=== PATIENT | female | born 1950 | race Caucasian/White ===

== ENCOUNTER 2019-05-31 16:43 | Emergency (ER) | payer MEDICARE, MEDICAID ==
[2019-05-31] MEDS ORDERED: Aspirin 81 MG Tab.Chew ONE (16:50)
[2019-05-31] MEDS ORDERED: Aspirin 81 MG Tab.Chew PO ONE (16:55)
--- NOTE | 2019-05-31 17:06 | EDM.PDOC ---
ED HPI GENERAL MEDICAL PROBLEM - General Stated Complaint: CP AND SOB Time Seen by Provider: 05/31/19 16:43 Source of Information: Reports: Patient History Limitations: Reports: No Limitations - History of Present Illness INITIAL COMMENTS - FREE TEXT/NARRATIVE: Patient presents via ambulance from [place] where she has been living for about two months. She states she has mild abdominal discomfort that started at about 3: 45pm with slight heaviness in the chest which is now gone. No nausea. She says she has had this several times over the last 2-3 weeks as well as dyspnea with walking. She says it has always responded well to Simethicone and wishes she had had some today so she wouldn't have had to come to ER. She denies any history of VA or stents. She has Parkinson's and has had a brain stimulator placed which helps. Generalized Pain Score (Numeric/FACES): 2 - Related Data Allergies Allergy/AdvReac Type Severity Reaction Status Date / Time ciprofloxacin [From Cipro] Allergy Anaphylactic Verified 05/31/19 16:57 Shock levofloxacin Allergy Anaphylactic Verified 05/31/19 16:57 Shock tetracycline Allergy Anaphylactic Verified 05/31/19 16:57 Shock Home Meds: Home Meds ALPRAZolam [Alprazolam] 0.25 mg PO BEDTIME 05/31/19 [History] ARIPiprazole [Abilify] 7.5 mg PO BID 05/31/19 [History] Acetaminophen 325 mg PO Q6H PRN 05/31/19 [History] Acetaminophen [Tylenol] 650 mg PO BID 05/31/19 [History] Albuterol [Ventolin HFA] 2 puff INH Q4H PRN 05/31/19 [History] Ascorbic Acid [Vitamin C] 2,000 mg PO BID 05/31/19 [History] Aspirin [Adult Low Dose Aspirin EC] 81 mg PO DAILY 05/31/19 [History] Bisacodyl [Biscolax] 10 mg RC DAILY PRN 05/31/19 [History] Calcium Carbonate 1,000 mg PO Q6H PRN 05/31/19 [History] Calcium Carbonate [Calcium] 1,000 mg PO DAILY@1800 05/31/19 [History] Carbidopa 25 mg PO QID 05/31/19 [History] Carbidopa/Levodopa [Carbidopa-Levodopa 25-250] 1 tab PO QID 05/31/19 [History] Cholecalciferol (Vitamin D3) [Vitamin D] 5,000 unit PO DAILY 05/31/19 [History] Cyanocobalamin (Vitamin B-12) [Vitamin B-12] 1,000 mcg SL Q30D 05/31/19 [History ] EPINEPHrine [Epipen] 0.3 mg IM ASDIRECTED PRN 05/31/19 [History] Entacapone 100 mg PO QID 05/31/19 [History] Fluticasone Propionate [Flonase] 1 spray NASBOTH BID 05/31/19 [History] Levothyroxine [Synthroid] 50 mcg PO ACBREAKFAST 05/31/19 [History] Magnesium Hydroxide [Milk of Magnesia] 30 ml PO DAILY PRN 05/31/19 [History] Magnesium Oxide [Magnesium] 400 mg PO BID 05/31/19 [History] Menthol [[place]] 1 lozenge PO Q3H PRN 05/31/19 [History] Nystatin 1 gm TP TID 05/31/19 [History] Pe/Shark Liver/Gly/Pet,Wh [Hemorrhoidal Cream] 1 gm RC QID PRN 05/31/19 [History ] Polyethylene Glycol 3350 [MiraLAX] 17 gm PO DAILY 05/31/19 [History] Sennosides/Docusate Sodium [Senna-S] 1 each PO BID 05/31/19 [History] Sertraline HCl 100 mg PO DAILY 05/31/19 [History] Topiramate 50 mg PO BEDTIME 05/31/19 [History] Ubidecarenone [Co Q-10] 100 mg PO DAILY@1800 05/31/19 [History] amLODIPine Besylate [Norvasc] 10 mg PO DAILY 05/31/19 [History] busPIRone [Buspar] 10 mg PO BID 05/31/19 [History] diphenhydrAMINE [Benadryl] 25 mg PO Q6H PRN 05/31/19 [History] ED ROS GENERAL - Review of Systems Review Of Systems: See Below Constitutional: Denies: Fever, Malaise, Weakness, Diaphoresis HEENT: Denies: Vision Change Respiratory: Reports: Shortness of Breath (with walking only). Denies: Cough Cardiovascular: Reports: Dyspnea on Exertion. Denies: Chest Pain, Lightheadedness, Syncope GI/Abdominal: Reports: Abdominal Pain (mild, low middle now--it shifted from chest and upper abdomen over the last hour). Denies: Constipation, Diarrhea, Nausea, Vomiting : Reports: Frequency (she has had a recent urology workup for this). Denies: Dysuria Musculoskeletal: Reports: Shoulder Pain (right side where she had B12 shot yesterday). Denies: Neck Pain, Arm Pain, Back Pain Skin: Denies: Cyanosis, Jaundice, Mottled, Pallor, Diaphoresis Neurological: Denies: Confusion, Dizziness, Headache, Seizure, Syncope, Change in Speech Psychiatric: Denies: Agitation, Anxiety, Confusion ED EXAM, GI/ABD - Physical Exam Exam: See Below Exam Limited By: No Limitations General Appearance: Alert, WD/WN, No Apparent Distress Eyes: Bilateral: Normal Appearance, EOMI Ears: Normal External Exam, Hearing Grossly Normal Nose: Normal Inspection, No Blood Throat/Mouth: Normal Inspection, Normal Lips, Normal Voice, No Airway Compromise Head: Atraumatic, Normocephalic Neck: Normal Inspection, Full Range of Motion Respiratory/Chest: No Respiratory Distress, Lungs Clear, Normal Breath Sounds, No Accessory Muscle Use Cardiovascular: Regular Rate, Rhythm, No Murmur GI/Abdominal Exam: Normal Bowel Sounds, Soft, Non-Tender, No Organomegaly, No Distention. No: Distended, Guarding, Rigid Back Exam: Normal Inspection, Full Range of Motion. No: CVA Tenderness (L), CVA Tenderness (R) Extremities: Normal Inspection, Normal Range of Motion, No Pedal Edema (minimal) Neurological: Alert, Oriented, Normal Cognition, No Motor/Sensory Deficits Psychiatric: Normal Affect, Normal Mood Skin Exam: Warm, Dry, Intact, Normal Color, No Rash Course - Vital Signs Last Recorded V/S: Last Vital Signs Temp 98.4 F 05/31/19 16:50 Pulse 80 05/31/19 18:16 Resp 18 05/31/19 18:16 BP 136/48 L 05/31/19 18:16 Pulse Ox 94 L 05/31/19 18:16 - Orders/Labs/Meds Orders: Active Orders 24 hr Category Date Time Status EKG Documentation Completion [RC] ASDIRECTED Care 05/31/19 16:54 Active Peripheral IV Care [RC] . DIRECTED Care 05/31/19 17:09 Active CULTURE URINE [RM] Stat Lab 05/31/19 17:47 Ordered Sodium Chloride 0.9% [Saline Flush] Med 05/31/19 17:09 Active 10 ml FLUSH Q8HR PRN Peripheral IV Insertion Adult [OM.PC] Routine Oth 05/31/19 17:09 Ordered EKG 12 Lead [EK] Routine Ther 05/31/19 16:53 Ordered Medication Orders Sodium Chloride (Saline Flush) 10 ml FLUSH Q8HR PRN PRN Reason: keep vein open Labs: Laboratory Tests 05/31/19 05/31/19 05/31/19 Range/Units 16:50 16:50 16:50 WBC 11.50 H (5.00-10.00) 10^3/uL RBC 4.43 (3.80-5.50) 10^6/uL Hgb 12.4 (12.0-16.0) g/dL Hct 38.3 (37.0-47.0) % MCV 86.5 (82.0-92.0) fL MCH 28.0 (27.0-31.0) pg MCHC 32.4 (32.0-36.0) g/dL RDW 16.6 H (11.5-14.5) % Plt Count 286 (150-400) 10^3/uL MPV 9.4 (7.4-10.4) fL Immature Gran % (Auto) 0.3 (0.0-5.0) % Neut % (Auto) 72.0 H (50.0-70.0) % Lymph % (Auto) 18.6 L (20.0-40.0) % [place] % (Auto) 7.0 (2.0-8.0) % Eos % (Auto) 1.8 (1.0-3.0) % Baso % (Auto) 0.3 (0.0-1.0) % Immature Gran # (Auto) 0.03 (0.00-0.50) 10^3/uL Neut # (Auto) 8.28 H (2.50-7.00) 10^3/uL Lymph # (Auto) 2.14 (1.00-4.00) 10^3/uL [place] # (Auto) 0.80 (0.10-0.80) 10^3/uL Eos # (Auto) 0.21 (0.10-0.30) 10^3/uL Baso # (Auto) 0.04 (0.00-0.10) 10^3/uL Sodium 144 (136-145) mmol/L Potassium 3.6 (3.3-5.3) mmol/L Chloride 104 (98-115) mmol/L Carbon Dioxide 26.0 (21.0-32.0) mmol/L Anion Gap 17.6 H (5-15) mmol/L BUN 10 (6-25) mg/dL Creatinine 0.44 L (0.51-1.17) mg/dL Est Cr Clr Drug Dosing 122.34 mL/min Estimated GFR (MDRD) > 60 mL/min Glucose 108 H (75 - 99) mg/dL Calcium 8.6 L (8.7-10.3) mg/dL Total Bilirubin 0.2 (0.2-1.0) mg/dL AST 20 (15-37) U/L ALT 14 (12-78) U/L Alkaline Phosphatase 136 H (46-116) IU/L Troponin I < 0.04 (0.00-0.070) ng/mL B-Natriuretic Peptide 48 (0-100) pg/mL Total Protein 7.3 (6.4-8.2) g/dL Albumin 3.16 (3.00-4.80) g/dL Specimen Type Urine Color (YELLOW) Urine Appearance (CLEAR) Urine pH (5.0-9.0) Ur Specific [place] (1.005-1.030) Urine Protein (NEGATIVE) mg/dL Urine Glucose (UA) (NEGATIVE) mg/dL Urine Ketones (NEGATIVE) mg/dL Urine Occult Blood (NEGATIVE) Urine Nitrite (NEGATIVE) Urine Bilirubin (NEGATIVE) Urine Urobilinogen (0.2-1.0) E.U./dL Ur Leukocyte Esterase (NEGATIVE) Urine RBC (0-5) /HPF Urine WBC (0-5) /HPF Ur Epithelial Cells /LPF Urine Bacteria (NONE TO FEW) /HPF 05/31/19 Range/Units 17:23 WBC (5.00-10.00) 10^3/uL RBC (3.80-5.50) 10^6/uL Hgb (12.0-16.0) g/dL Hct (37.0-47.0) % MCV (82.0-92.0) fL MCH (27.0-31.0) pg MCHC (32.0-36.0) g/dL RDW (11.5-14.5) % Plt Count (150-400) 10^3/uL MPV (7.4-10.4) fL Immature Gran % (Auto) (0.0-5.0) % Neut % (Auto) (50.0-70.0) % Lymph % (Auto) (20.0-40.0) % [place] % (Auto) (2.0-8.0) % Eos % (Auto) (1.0-3.0) % Baso % (Auto) (0.0-1.0) % Immature Gran # (Auto) (0.00-0.50) 10^3/uL Neut # (Auto) (2.50-7.00) 10^3/uL Lymph # (Auto) (1.00-4.00) 10^3/uL [place] # (Auto) (0.10-0.80) 10^3/uL Eos # (Auto) (0.10-0.30) 10^3/uL Baso # (Auto) (0.00-0.10) 10^3/uL Sodium (136-145) mmol/L Potassium (3.3-5.3) mmol/L Chloride (98-115) mmol/L Carbon Dioxide (21.0-32.0) mmol/L Anion Gap (5-15) mmol/L BUN (6-25) mg/dL Creatinine (0.51-1.17) mg/dL Est Cr Clr Drug Dosing mL/min Estimated GFR (MDRD) mL/min Glucose (75 - 99) mg/dL Calcium (8.7-10.3) mg/dL Total Bilirubin (0.2-1.0) mg/dL AST (15-37) U/L ALT (12-78) U/L Alkaline Phosphatase (46-116) IU/L Troponin I (0.00-0.070) ng/mL B-Natriuretic Peptide (0-100) pg/mL Total Protein (6.4-8.2) g/dL Albumin (3.00-4.80) g/dL Specimen Type Urinvoid Urine Color Yellow (YELLOW) Urine Appearance Clear (CLEAR) Urine pH 7.0 (5.0-9.0) Ur Specific [place] <= 1.005 (1.005-1.030) Urine Protein Negative (NEGATIVE) mg/dL Urine Glucose (UA) Negative (NEGATIVE) mg/dL Urine Ketones Negative (NEGATIVE) mg/dL Urine Occult Blood Negative (NEGATIVE) Urine Nitrite Negative (NEGATIVE) Urine Bilirubin Negative (NEGATIVE) Urine Urobilinogen 0.2 (0.2-1.0) E.U./dL Ur Leukocyte Esterase Trace H (NEGATIVE) Urine RBC 0-5 (0-5) /HPF Urine WBC 20-30 H (0-5) /HPF Ur Epithelial Cells Few /LPF Urine Bacteria Moderate H (NONE TO FEW) /HPF Meds: Medications Generic Name Dose Route Start Last Admin Trade Name Freq PRN Reason Stop Dose Admin Sodium Chloride 10 ml 05/31/19 17:09 Saline Flush FLUSH Q8HR PRN keep vein open Discontinued Medications Generic Name Dose Route Start Last Admin Trade Name Freq PRN Reason Stop Dose Admin Al Hydroxide/Mg Hydroxide 45 ml 05/31/19 17:10 05/31/19 17:13 Gi Cocktail PO 05/31/19 17:11 45 ml ONETIME ONE Administration Aspirin Confirm 05/31/19 16:50 05/31/19 17:04 Aspirin Administered 05/31/19 16:51 Not Given Dose 324 mg .ROUTE .STK-MED ONE Aspirin 324 mg 05/31/19 16:55 05/31/19 16:50 Aspirin PO 05/31/19 16:56 324 mg ONETIME ONE Administration Simethicone 160 mg 05/31/19 17:37 05/31/19 17:47 Simethicone PO 05/31/19 17:38 160 mg ONETIME ONE Administration - Re-Assessments/Exams Free Text/Narrative Re-Assessment/Exam: 05/31/19 17:11 Patient says the pain in the abdomen is slowly fading. Right now she feels some pressure in the chest again that she describes as indigestion. Will try a GI cocktail to help determine etiology. 05/31/19 17:39 The GI cocktail resolved the chest pressure and she feels now like she has a gas bubble pressure in the abdomen. She would like some Simethicone. 05/31/19 18:11 She now feels pretty close to back to normal and says the Simethicone definitely helped. Labs okay with Troponin <0.04. CXR shows evidence of likely CHF exacerbation so will add on a BNP. Patient has never been told she has CHF but she wonders if she does with fluid retention sometimes. 05/31/19 18:42 BNP is normal. Patient is feeling well and has family here now to take her back. We discussed findings and treatment plan. Patient discharged back to [place] in stable condition. Departure - Departure Time of Disposition: 18:38 Disposition: DC/Tfer to SNF 03 Condition: Good Clinical Impression: Abdominal gas pain, Gassy chest pain - Discharge Information Referrals: Agnieszka Flannery MD [Primary Care Provider] - Additional Instructions: 1. Use the Simethicone as needed. 2. Follow up with your PCP as needed. - My Orders Last 24 Hours: My Active Orders 05/31/19 16:53 EKG 12 Lead [EK] Routine 05/31/19 16:54 EKG Documentation Completion [RC] ASDIRECTED 05/31/19 17:09 Peripheral IV Care [RC] . DIRECTED Sodium Chloride 0.9% [Saline Flush] 10 ml FLUSH Q8HR PRN Peripheral IV Insertion Adult [OM.PC] Routine 05/31/19 17:47 CULTURE URINE [RM] Stat - Assessment/Plan Last 24 Hours: My Active Orders 05/31/19 16:53 EKG 12 Lead [EK] Routine 05/31/19 16:54 EKG Documentation Completion [RC] ASDIRECTED 05/31/19 17:09 Peripheral IV Care [RC] . DIRECTED Sodium Chloride 0.9% [Saline Flush] 10 ml FLUSH Q8HR PRN Peripheral IV Insertion Adult [OM.PC] Routine 05/31/19 17:47 CULTURE URINE [RM] Stat
[2019-05-31] MEDS ORDERED: Sodium Chloride 0.9% 10 ML Syringe FLUSH PRN (17:09)
[2019-05-31] MEDS ORDERED: GI Cocktail 45 ML BOTTLE PO ONE (17:10)
--- NOTE | 2019-05-31 17:23 | CR ---
[id number] RAD/RAD Chest PA or AP 1V EXAM: RAD Chest PA or AP 1V INDICATION: CHEST PAIN, SHORTNESS OF BREATH. COMPARISON: October 26, 2018. DISCUSSION: There is a left chest wall vagal stimulator in place. Cardiomediastinal silhouette is enlarged. Pulmonary vascular congestion with patchy airspace opacification bilaterally. No pneumothorax or pleural effusion. IMPRESSION: Findings suggestive of congestive heart failure exacerbation. Brock Garza DO 05/31/19 1562 Thank you for allowing us to participate in the care of your patient.
[2019-05-31] MEDS ORDERED: Simethicone 80 MG Tab.Chew PO ONE (17:37)
[2019-05-31 17:45] LABS: ANION GAP 17.6 mmol/L (5-15); CHLORIDE,CL 104 mmol/L (98-115); SODIUM,NA 144 mmol/L (136-145)
== END 2019-05-31 18:55 ==
LOC: KA.ED 16:43
DX: R14.1 Gas pain (principal); R07.89 Other chest pain; G20 Parkinson's disease; Z88.1 Allergy status to other antibiotic agents; Z88.8 Allergy status to other drugs, medicaments and biological substances; Z79.82 Long term (current) use of aspirin; Z79.899 Other long term (current) drug therapy; R06.09 Other forms of dyspnea
CPT/HCPCS: 36415; 71045; 80053; 81001; 83880; 84484; 85025; 87077; 87086; 87088; 87186; 93005; 99285; A9270

== ENCOUNTER 2020-08-12 10:07 | Emergency (ER) | payer MEDICARE, MEDICAID ==
--- NOTE | 2020-08-12 10:52 | EDM.PDOC ---
ED HPI GENERAL MEDICAL PROBLEM - General Chief Complaint: General Stated Complaint: L KNEE PAIN Time Seen by Provider: 08/12/20 10:46 - History of Present Illness INITIAL COMMENTS - FREE TEXT/NARRATIVE: Presents emergency room by transfer [facility] via [facility], for a [facility] last [facility]. Patient is unable to walk however she was in her recliner in her room and she decided she would get up and try to get to her bed. She fell forward, after attempting to stand without assistance and her left knee hit the edge of the night stand. She laid there for approximately less than 5 minutes. No other injuries noted. No loss of consciousness, no head or neck or back injury or pain. She is not on any anticoagulants. Currently her pain, sharp, constant, no radiation, is 9 out of 10 with the left knee. Patient has history of bilateral total knee replacements one done in 2012 and the other knee in 2013, both were done at [facility]. Patient Left Knee Pain Score (Numeric/FACES): 9 - Related Data Allergies Allergy/AdvReac Type Severity Reaction Status Date / Time adhesive Allergy Cannot Verified 08/12/20 10:28 Remember bee venom protein (honey bee) Allergy Anaphylactic Verified 08/12/20 10:28 Shock cefdinir Allergy Rash Verified 08/12/20 10:28 ciprofloxacin [From Cipro] Allergy Anaphylactic Verified 05/31/19 16:57 Shock codeine Allergy Cannot Verified 08/12/20 10:28 Remember equine protein Allergy Anaphylactic Verified 08/12/20 10:28 Shock gabapentin Allergy Edema Verified 08/12/20 10:28 ibuprofen Allergy Anaphylactic Verified 08/12/20 10:28 Shock iodine Allergy Anaphylactic Verified 08/12/20 10:28 Shock latex Allergy Rash Verified 08/12/20 10:28 levofloxacin Allergy Anaphylactic Verified 05/31/19 16:57 Shock metronidazole Allergy Hives Verified 08/12/20 10:28 morphine Allergy Anaphylactic Verified 08/12/20 10:28 Shock oxycodone Allergy Cannot Verified 08/12/20 10:28 Remember povidone-iodine Allergy Cannot Verified 08/12/20 10:28 [From Betadine] Remember procaine Allergy Nausea and Verified 08/12/20 10:28 Vomiting shellfish derived Allergy Anaphylactic Verified 08/12/20 10:28 Shock soap [From Betadine] Allergy Cannot Verified 08/12/20 10:28 Remember Sulfa (Sulfonamide Allergy Anaphylactic Verified 08/12/20 10:28 Antibiotics) Shock tetracycline Allergy Anaphylactic Verified 05/31/19 16:57 Shock tramadol Allergy Cannot Verified 08/12/20 10:28 Remember contrast Allergy Anaphylactic Uncoded 08/12/20 10:28 Shock diptheria toxoid Allergy Cannot Uncoded 08/12/20 10:28 Remember troleanolomycin Allergy Anaphylactic Uncoded 08/12/20 10:28 Shock Home Meds: Home Meds ALPRAZolam [Alprazolam] 0.25 mg PO BEDTIME 05/31/19 [History] Acetaminophen 325 mg PO Q6H PRN 05/31/19 [History] Albuterol [Ventolin HFA] 2 puff INH Q4H PRN 05/31/19 [History] Ascorbic Acid [Vitamin C] 2,000 mg PO BID 05/31/19 [History] Calcium Carbonate [Calcium] 1,000 mg PO DAILY@1800 05/31/19 [History] Carbidopa 25 mg PO QID 05/31/19 [History] Cyanocobalamin (Vitamin B-12) [Vitamin B-12] 1,000 mcg SL Q30D 05/31/19 [History] Entacapone 100 mg PO QID 05/31/19 [History] Fluticasone Propionate [Flonase] 1 spray NASBOTH BID 05/31/19 [History] Levothyroxine [Synthroid] 50 mcg PO ACBREAKFAST 05/31/19 [History] Magnesium Oxide [Magnesium] 400 mg PO BID 05/31/19 [History] Menthol [Dale] 1 lozenge PO Q3H PRN 05/31/19 [History] Nystatin 1 gm TP TID 05/31/19 [History] Sennosides/Docusate Sodium [Senna-S] 1 each PO BID 05/31/19 [History] Sertraline HCl 100 mg PO DAILY 05/31/19 [History] Ubidecarenone [Co Q-10] 100 mg PO DAILY@1800 05/31/19 [History] busPIRone [Buspar] 10 mg PO BID 05/31/19 [History] polyethylene glycoL 3350 [MiraLAX] 17 gm PO DAILY 05/31/19 [History] Acetaminophen 650 mg PO Q4H PRN 08/12/20 [History] Aspirin 81 mg PO DAILY 08/12/20 [History] Calcium Carbonate [Tums] 1,000 mg PO Q6H PRN 08/12/20 [History] Carbidopa/Levodopa [Carbidopa-Levo ER 25-100] 3 tab PO QID 08/12/20 [History] Cholecalciferol (Vitamin D3) [Vitamin D3] 5,000 unit PO DAILY 08/12/20 [History] EPINEPHrine [Epinephrine] 0.15 mg IM DAILY PRN 08/12/20 [History] Eucalyptus Oil/Menthol/Camphor [Chest Rub 4.8%-1.2%-2.6% Stick] 1 applic TOP BEDTIME 08/12/20 [History] Furosemide [Lasix] 40 mg PO BID 08/12/20 [History] Melatonin 10 mg PO BEDTIME 08/12/20 [History] Omeprazole 20 mg PO DAILY 08/12/20 [History] Ondansetron [Zofran] 4 mg PO TID PRN 08/12/20 [History] Pimavanserin Tartrate [Nuplazid] 34 mg PO DAILY 08/12/20 [History] Polyvinyl Alcohol [LiquiTears 1.4% Ophth Soln] 1 drop EYEBOTH BID PRN 08/12/20 [History] QUEtiapine Fumarate [Quetiapine Fumarate] 75 mg PO 2000 08/12/20 [History] Simethicone 80 mg PO TID PRN 08/12/20 [History] carvediloL [Coreg] 3.125 mg PO BID 08/12/20 [History] diphenhydrAMINE [Benadryl] 25 mg PO Q6H PRN 08/12/20 [History] lisinopriL [Lisinopril] 5 mg PO DAILY 08/12/20 [History] Past Medical History HEENT History: Reports: Cataract, Impaired Vision Cardiovascular History: Reports: Hypertension, Other (See Below) Other Cardiovascular History: Heart disease. 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: Neurological History: Reports: Parkinson's Psychiatric History: Reports: Anxiety, Depression Other Psychiatric History: "pyschotic disorder, mood disorder, dysthmic disorder" Endocrine/Metabolic History: Reports: Hypothyroidism, Obesity/BMI 30+, Vitamin D Deficiency, Other (See Below) Other Endocrine/Metabolic History: Magnesium deficiency Hematologic History: Reports: None Immunologic History: Reports: None Oncologic (Cancer) History: Reports: None Dermatologic History: Reports: Eczema - Infectious Disease History Infectious Disease History: Reports: Chicken Pox - Past Surgical History HEENT Surgical History: Reports: Tonsillectomy Cardiovascular Surgical History: Reports: None Respiratory Surgical History: Reports: None Female Surgical History: Reports: Oophorectomy, Other (See Below) Other Female Surgeries/Procedures: "bladder uplift" Neurological Surgical History: Reports: Other (See Below) Other Neurological Surgeries/Procedures: Deep brain simulation device for Parkinsons Musculoskeletal Surgical History: Reports: Knee Replacement Dermatological Surgical History: Reports: None Social & Family History - Family History Family Medical History: Noncontributory - Caffeine Use Caffeine Use: Reports: Coffee ED ROS GENERAL - Review of Systems Review Of Systems: See Below Constitutional: Reports: No Symptoms Respiratory: Reports: No Symptoms Cardiovascular: Reports: No Symptoms GI/Abdominal: Reports: No Symptoms Musculoskeletal: Reports: Leg Pain, Other (left knee pain) Skin: Reports: No Symptoms. Denies: Cyanosis, Erythema Neurological: Reports: No Symptoms ED EXAM, GENERAL - Physical Exam Exam: See Below Exam Limited By: No Limitations General Appearance: Alert, WD/WN, No Apparent Distress Eye Exam: Bilateral Eye: EOMI, PERRL Throat/Mouth: Normal Inspection Head: Atraumatic, Normocephalic Neck: Normal Inspection, Supple, Tender Midline Respiratory/Chest: No Respiratory Distress Cardiovascular: Normal Peripheral Pulses, Regular Rate, Rhythm Peripheral Pulses: 2+: Posterior Tibial (L), Posterior Tibial (R), Dorsalis Pedis (L), Dorsalis Pedis (R) GI/Abdominal: Soft, Non-Tender Back Exam: Normal Inspection, Full Range of Motion Extremities: Leg Pain, Limited Range of Motion (left knee limited ROM due to pain.), Other (left leg flexed. ). No: Pallor, Redness Neurological: Alert, Oriented Psychiatric: Normal Affect, Normal Mood Skin Exam: Warm, Dry, Intact. No: Diaphoretic, Ecchymosis Course - Vital Signs Last Recorded V/S: Last Vital Signs Temp 96.2 F L 08/12/20 10:10 Pulse 74 08/12/20 10:10 Resp 16 08/12/20 10:10 BP 105/43 L 08/12/20 10:10 Pulse Ox 92 L 08/12/20 10:10 - Orders/Labs/Meds Orders: Active Orders 24 hr Category Date Time Status Peripheral IV Care [RC] . DIRECTED Care 08/12/20 11:32 Ordered Ondansetron [Zofran] Med 08/12/20 11:24 Ordered 4 mg IVPUSH Q4H PRN Sodium Chloride 0.9% [Saline Flush] Med 08/12/20 11:32 Ordered 10 ml FLUSH Q8HR PRN Peripheral IV Insertion Adult [OM.PC] Routine Oth 08/12/20 11:32 Ordered Medication Orders Ondansetron HCl (Zofran) 4 mg IVPUSH Q4H PRN PRN Reason: Nausea/Vomiting Last Admin: 08/12/20 11:43 Dose: 4 mg Documented by: SONU Sodium Chloride (Saline Flush) 10 ml FLUSH Q8HR PRN PRN Reason: keep vein open Last Admin: 08/12/20 11:52 Dose: 10 ml Documented by: Admin: 08/12/20 11:43 Dose: 10 ml Documented by: SONU Labs: Laboratory Tests 08/12/20 08/12/20 Range/Units 11:30 11:30 WBC 14.54 H (5.00-10.00) 10^3/uL RBC 4.23 (3.80-5.50) 10^6/uL Hgb 12.1 (12.0-16.0) g/dL Hct 38.8 (37.0-47.0) % MCV 91.7 D (82.0-92.0) fL MCH 28.6 (27.0-31.0) pg MCHC 31.2 L (32.0-36.0) g/dL RDW 15.0 H (11.5-14.5) % Plt Count 288 (150-400) 10^3/uL MPV 9.2 (7.4-10.4) fL Immature Gran % (Auto) 0.3 (0.0-5.0) % Neut % (Auto) 77.8 H (50.0-70.0) % Lymph % (Auto) 12.2 L (20.0-40.0) % [place] % (Auto) 8.6 H (2.0-8.0) % Eos % (Auto) 0.9 L (1.0-3.0) % Baso % (Auto) 0.2 (0.0-1.0) % Neut # (Auto) 11.31 H (2.50-7.00) 10^3/uL Lymph # (Auto) 1.78 (1.00-4.00) 10^3/uL [place] # (Auto) 1.25 H (0.10-0.80) 10^3/uL Eos # (Auto) 0.13 (0.10-0.30) 10^3/uL Baso # (Auto) 0.03 (0.00-0.10) 10^3/uL Immature Gran # (Auto) 0.04 (0.00-0.50) 10^3/uL Sodium 140 (136-145) mmol/L Potassium 4.0 (3.3-5.3) mmol/L Chloride 101 (98-115) mmol/L Carbon Dioxide 31.8 (21.0-32.0) mmol/L Anion Gap 11.2 (5-15) mmol/L BUN 15 (6-25) mg/dL Creatinine 0.52 (0.51-1.17) mg/dL Est Cr Clr Drug Dosing 102.08 mL/min Estimated GFR (MDRD) > 60 mL/min Glucose 100 H (75 - 99) mg/dL Calcium 8.5 L (8.7-10.3) mg/dL Meds: Medications Generic Name Dose Route Start Last Admin Trade Name Freq PRN Reason Stop Dose Admin Ondansetron HCl 4 mg 08/12/20 11:24 08/12/20 11:43 Zofran IVPUSH 4 mg Q4H PRN Administration Nausea/Vomiting Sodium Chloride 10 ml 08/12/20 11:32 08/12/20 11:52 Saline Flush FLUSH 10 ml Q8HR PRN Administration keep vein open Discontinued Medications Generic Name Dose Route Start Last Admin Trade Name Freq PRN Reason Stop Dose Admin Fentanyl 25 mcg 08/12/20 11:24 08/12/20 11:47 Sublimaze IVPUSH 08/12/20 11:25 25 mcg ONETIME ONE Administration Fentanyl 25 mcg 08/12/20 12:17 Sublimaze IVPUSH 08/12/20 12:18 ONETIME ONE - Re-Assessments/Exams Free Text/Narrative Re-Assessment/Exam: 08/12/20 11:20 Spoke with family, Cleo, who is the POA. Both patient and POA prefer to go to [place] for further evaluation/management. Patient n.p.o. last 730 this morning. She was given a gram of Tylenol with her morning meds. I did consult her family doctor Ashley LANDEROS in which she has received fentanyl in the past and tolerated. She does have multiple allergies multiple comorbidities as well. I did call Gene in [place] to arrange consult with orthopedics awaiting a phone call back. Patient is a full code. 08/12/20 12:[address] Francis orthopedic surgeon from [place]. He has accpeted patient's care. 2 options were given patient. [facility] for [facility] and heel. However the patient has plans that she wants to walk again. I guess the patient does stand with max assist and takes 1 or 2 steps with therapy at the [facility]. Both the patient and the daughter who is the power of attorney lawyer both want to have surgery to and help improve her ambulation ability in the future. 08/12/20 12:19 left knee immobilizer placed on left leg. DNV intact. pain is controlled. EMS called for transfer, family updated. Departure - Departure Time of Disposition: 12:12 Disposition: DC/Tfer to Acute Hospital 02 Condition: Fair Clinical Impression: Femoral fracture Qualifiers: Encounter type: initial encounter Fracture type: closed Fracture morphology: comminuted Fracture alignment: displaced Laterality: left - Discharge Information *PRESCRIPTION DRUG MONITORING PROGRAM REVIEWED*: No *COPY OF PRESCRIPTION DRUG MONITORING REPORT IN PATIENT BETH: No Referrals: Agnieszka Flannery MD [Primary Care Provider] - Forms: ED Department Discharge, Interfacility Transfer [facility] Sepsis Event Note (ED) - Evaluation Sepsis Screening Result: No Definite Risk - Focused Exam Vital Signs: Vital Signs Temp Pulse Resp BP Pulse Ox 08/12/20 10:10 96.2 F L 74 16 105/43 L 92 L - My Orders Last 24 Hours: My Active Orders 08/12/20 11:24 Ondansetron [Zofran] 4 mg IVPUSH Q4H PRN 08/12/20 11:32 Peripheral IV Care [RC] . DIRECTED Sodium Chloride 0.9% [Saline Flush] 10 ml FLUSH Q8HR PRN Peripheral IV Insertion Adult [OM.PC] Routine - Assessment/Plan Last 24 Hours: My Active Orders 08/12/20 11:24 Ondansetron [Zofran] 4 mg IVPUSH Q4H PRN 08/12/20 11:32 Peripheral IV Care [RC] . DIRECTED Sodium Chloride 0.9% [Saline Flush] 10 ml FLUSH Q8HR PRN Peripheral IV Insertion Adult [OM.PC] Routine
[2020-08-12] MEDS ORDERED: fentaNYL 100 MCG/2 ML SDV IVPUSH ONE ×2 (11:24→12:17)
[2020-08-12] MEDS ORDERED: Ondansetron 4 MG/2 ML SDV IVPUSH PRN (11:24)
--- NOTE | 2020-08-12 11:37 | CR ---
[id number] RAD/RAD Knee Left 1-2V EXAM: RAD Knee Left 1-2V INDICATION: PAIN. COMPARISON: August 13, 2019. DISCUSSION: Total knee arthroplasty. There is an acute comminuted periprosthetic fracture of the distal femur with posterior angulation and up to 16 mm posterior and lateral displacement of the main distal fracture segment. Osteopenia. Mineralization in the soft tissues along the ventral aspect of the distal leg may relate to a prior quadriceps injury. IMPRESSION: 1. Acute comminuted and displaced periprosthetic fracture of the distal femur. Misael Garcia MD 08/12/20 1136 Thank you for allowing us to participate in the care of your patient.
[2020-08-12] MEDS: Sodium Chloride 0.9% 10 ML Syringe FLUSH PRN ×3 (11:43→12:45)
[2020-08-12 12:07] LABS: ANION GAP 11.2 mmol/L (5-15); CHLORIDE,CL 101 mmol/L (98-115); SODIUM,NA 140 mmol/L (136-145)
== END 2020-08-12 13:20 ==
LOC: KA.ED 10:07
DX: S72.402A Unspecified fracture of lower end of left femur, initial encounter for closed fracture (principal); M97.02XA Periprosthetic fracture around internal prosthetic left hip joint, initial encounter; I10 Essential (primary) hypertension; J45.909 Unspecified asthma, uncomplicated; K21.9 Gastro-esophageal reflux disease without esophagitis; G20 Parkinson's disease; F41.9 Anxiety disorder, unspecified; F32.9 Major depressive disorder, single episode, unspecified; E03.9 Hypothyroidism, unspecified; E66.9 Obesity, unspecified; Z91.048 Other nonmedicinal substance allergy status; Z68.39 Body mass index [BMI] 39.0-39.9, adult; Z91.030 Bee allergy status; Z88.1 Allergy status to other antibiotic agents; Z88.5 Allergy status to narcotic agent; Z88.8 Allergy status to other drugs, medicaments and biological substances; Z91.040 Latex allergy status; Z91.013 Allergy to seafood; Z88.2 Allergy status to sulfonamides; Z88.6 Allergy status to analgesic agent; Z88.7 Allergy status to serum and vaccine; Z79.899 Other long term (current) drug therapy; W17.89XA Other fall from one level to another, initial encounter; Y92.129 Unspecified place in nursing home as the place of occurrence of the external cause
CPT/HCPCS: 36415; 73560-LT; 80048; 85025; 96374; 96375; 96376; 99284; 99285-25; J2405; J3010

== ENCOUNTER 2021-10-12 17:03 | Observation (INO) | payer MEDICARE, MEDICAID ==
[2021-10-12] MEDS ORDERED: Sodium Chloride 0.9% 10 ML Syringe FLUSH PRN (17:28)
[2021-10-12] MEDS ORDERED: Sodium Chloride 0.9% 1,000 ML IV ONE (17:28)
[2021-10-12 18:12] LABS: ANION GAP 11.4 mmol/L (5-15); CHLORIDE,CL 99 mmol/L (98-107); SODIUM,NA 140 mmol/L (136-145)
--- NOTE | 2021-10-12 18:16 | EDM.PDOC ---
ED HPI GENERAL MEDICAL PROBLEM - General Chief Complaint: General Stated Complaint: DEHYDRATION Time Seen by Provider: 10/12/21 17:30 Source of Information: Reports: Patient History Limitations: Reports: No Limitations - History of Present Illness INITIAL COMMENTS - FREE TEXT/NARRATIVE: 71 YO WF PRESENTS TO ER WITH ACCOMPANIED BY DAUGHTER WITH COMPLAINTS OF GENERALIZED WEAKNESS, WEIGHT LOSS AND CONCERNS FOR DEHYDRATION. PT IS A RESIDENT OF [facility] AND WAS BROUGHT TO ER BY PRIVATE CAR DUE TO CONCERNS OF POOR CARE AT CARE HOME. DAUGHTER STATES HER MOM HAS NOT BEEN EATING OR DRINKING WELL, PT HAS A SACRAL ULCER WHICH SHE FEELS HAS NOT BEEN TREATED APPROPRIATELY AND SHE FEELS HER MOM IS BEING OVERLY MEDICATED. PT HAS PMH OF PARKINSON'S WITH NEUROSTIMULATOR. DAUGHTER STATES HER MOM HAS LOST 40LBS OVER THE LAST 2-3 MONTHS. PT HAD A TELEMEDICINE VISIT TODAY WITH NEUROLOGY AND HAD HER SINEMET DECREASED AND HAD HER ZOFRAN INCREASED DUE TO FEELING NAUSEATED ALL THE TIME. PT IS BEDBOUND. PT DENIES ANY COMPLAINTS AT THIS TIME. DAUGHTER IS CONCERNED FOR WORSENING SACRAL ULCER AND POSSIBLE WORSENING COLD SORE ON HER RIGHT UPPER LIP. Duration: Chronic, Getting Worse Location: Reports: Generalized Improves with: Reports: None Worsens with: Reports: None Associated Symptoms: Reports: No Other Symptoms, Loss of Appetite, Malaise, Nausea/Vomiting, Weakness. Denies: Chest Pain, Cough, Fever/Chills - Related Data Allergies Allergy/AdvReac Type Severity Reaction Status Date / Time adhesive Allergy Cannot Verified 10/12/21 17:58 Remember bee venom protein (honey bee) Allergy Anaphylactic Verified 10/12/21 17:58 Shock cefdinir Allergy Rash Verified 10/12/21 17:58 ciprofloxacin [From Cipro] Allergy Anaphylactic Verified 10/12/21 17:58 Shock codeine Allergy Cannot Verified 10/12/21 17:58 Remember equine protein Allergy Anaphylactic Verified 10/12/21 17:58 Shock gabapentin Allergy Edema Verified 10/12/21 17:58 ibuprofen Allergy Anaphylactic Verified 10/12/21 17:58 Shock iodine Allergy Anaphylactic Verified 10/12/21 17:58 Shock latex Allergy Rash Verified 10/12/21 17:58 levofloxacin Allergy Anaphylactic Verified 10/12/21 17:58 Shock metronidazole Allergy Hives Verified 10/12/21 17:58 morphine Allergy Anaphylactic Verified 10/12/21 17:58 Shock oxycodone Allergy Cannot Verified 10/12/21 17:58 Remember povidone-iodine Allergy Cannot Verified 10/12/21 17:58 [From Betadine] Remember procaine Allergy Nausea and Verified 10/12/21 17:58 Vomiting shellfish derived Allergy Anaphylactic Verified 10/12/21 17:58 Shock soap [From Betadine] Allergy Cannot Verified 10/12/21 17:58 Remember Sulfa (Sulfonamide Allergy Anaphylactic Verified 10/12/21 17:58 Antibiotics) Shock tetracycline Allergy Anaphylactic Verified 10/12/21 17:58 Shock tramadol Allergy Cannot Verified 10/12/21 17:58 Remember contrast Allergy Anaphylactic Uncoded 08/12/20 10:28 Shock diptheria toxoid Allergy Cannot Uncoded 08/12/20 10:28 Remember troleanolomycin Allergy Anaphylactic Uncoded 08/12/20 10:28 Shock Home Meds: Home Meds Albuterol [Ventolin HFA] 2 puff INH Q4H PRN 05/31/19 [History] Carbidopa 25 mg PO ASDIRECTED 05/31/19 [History] Cyanocobalamin (Vitamin B-12) [Vitamin B-12] 1,000 mcg INJECT Q30D 05/31/19 [History] Entacapone 200 mg PO ASDIRECTED 05/31/19 [History] Fluticasone Propionate [Flonase] 1 spray NASBOTH 05/31/19 [History] Levothyroxine [Synthroid] 50 mcg PO ACBREAKFAST 05/31/19 [History] Magnesium Oxide [Magnesium] 400 mg PO ,05/31/19 [History] Sennosides/Docusate Sodium [Senna-S] 1 each PO ,05/31/19 [History] Sertraline HCl 150 mg PO BEDTIME 05/31/19 [History] polyethylene glycoL 3350 [MiraLAX] 17 gm PO DAILY 05/31/19 [History] Acetaminophen 650 mg PO Q6HR PRN 08/12/20 [History] Aspirin 81 mg PO DAILY 08/12/20 [History] EPINEPHrine [Epinephrine] 0.15 mg IM DAILY PRN 08/12/20 [History] Eucalyptus Oil/Menthol/Camphor [Chest Rub 4.8%-1.2%-2.6% Stick] 1 applic TOP BEDTIME 08/12/20 [History] Furosemide [Lasix] 40 mg PO 08,12 08/12/20 [History] Melatonin 5 mg PO BEDTIME 08/12/20 [History] Omeprazole 20 mg PO DAILY 08/12/20 [History] Ondansetron [Zofran] 4 mg PO TID PRN 08/12/20 [History] Pimavanserin Tartrate [Nuplazid] 34 mg PO DAILY 08/12/20 [History] Polyvinyl Alcohol [LiquiTears 1.4% Ophth Soln] 1 drop EYEBOTH BID PRN 08/12/20 [History] QUEtiapine Fumarate [Quetiapine Fumarate] 75 mg PO BEDTIME 08/12/20 [History] carvediloL [Coreg] 3.125 mg PO BID 08/12/20 [History] lisinopriL [Lisinopril] 5 mg PO DAILY 08/12/20 [History] ARIPiprazole [Abilify] 2 mg PO BEDTIME 10/12/21 [History] Acetaminophen [Tylenol Arthritis] 650 mg PO ,18 10/12/21 [History] Bisacodyl [Gentle Laxative] 10 mg RC DAILY 10/12/21 [History] Calcium Carbonate [Oyster Shell Calcium] 500 mg PO ,18 10/12/21 [History] Camphor/Eucalyptus/Menthol [Vicks Vaposteam Liquid] 236 ml TOP ASDIRECTED 10/12/21 [History] Carbidopa/Levodopa [Carbidopa-Levo ER 50-200] 1 tab PO 0200,2000 10/12/21 [History] Carbidopa/Levodopa [Carbidopa-Levodopa 25-100] 3 tab PO QID 10/12/21 [History] Fexofenadine HCl 180 mg PO BEDTIME 10/12/21 [History] Magnesium Hydroxide [Milk of Magnesia] 30 ml PO DAILY PRN 10/12/21 [History] Metoclopramide HCl 5 mg PO 0730,1130,1700 10/12/21 [History] Potassium Chloride [Klor-Con 10] 10 meq PO 08,18 10/12/21 [History] Trolamine Salicylate/Aloe Vera [Aspercreme 10%] 1 applic TOP BID PRN 10/12/21 [History] Ubidecarenone [Co Q-10] 100 mg PO 1800 10/12/21 [History] docosanoL [Abreva 10%] 1 applic TOP ASDIRECTED 10/12/21 [History] Past Medical History HEENT History: Reports: Cataract, Impaired Vision Cardiovascular History: Reports: Hypertension, Other (See Below) Other Cardiovascular History: Heart disease. Respiratory History: Reports: Asthma Gastrointestinal History: Reports: GERD Genitourinary History: Reports: Renal Calculus MANAGER OUTREACH History: Reports: Neurological History: Reports: Parkinson's Psychiatric History: Reports: Anxiety, Depression Other Psychiatric History: "pyschotic disorder, mood disorder, dysthmic disorder" Endocrine/Metabolic History: Reports: Hypothyroidism, Obesity/BMI 30+, Vitamin D Deficiency, Other (See Below) Other Endocrine/Metabolic History: Magnesium deficiency Hematologic History: Reports: None Immunologic History: Reports: None Oncologic (Cancer) History: Reports: None Dermatologic History: Reports: Eczema - Infectious Disease History Infectious Disease History: Reports: Chicken Pox - Past Surgical History HEENT Surgical History: Reports: Tonsillectomy Cardiovascular Surgical History: Reports: None Respiratory Surgical History: Reports: None Female Surgical History: Reports: Oophorectomy, Other (See Below) Other Female Surgeries/Procedures: "bladder uplift" Neurological Surgical History: Reports: Other (See Below) Other Neurological Surgeries/Procedures: Deep brain simulation device for Parkinsons Musculoskeletal Surgical History: Reports: Knee Replacement Dermatological Surgical History: Reports: None Social & Family History - Family History Family Medical History: No Pertinent Family History - Caffeine Use Caffeine Use: Reports: Coffee ED ROS GENERAL - Review of Systems Review Of Systems: See Below Constitutional: Reports: Malaise, Weakness, Decreased Appetite, Weight Loss HEENT: Reports: Other (MOUTH ULCER) Respiratory: Reports: No Symptoms Cardiovascular: Reports: No Symptoms Endocrine: Reports: No Symptoms GI/Abdominal: Reports: No Symptoms, Anorexia, Decreased Appetite, Nausea Skin: Reports: Wound (SACRAL DECUBITUS ULCER ) Neurological: Reports: Weakness Psychiatric: Reports: Depression Hematologic/Lymphatic: Reports: No Symptoms Immunologic: Reports: No Symptoms ED EXAM, GENERAL - Physical Exam Exam: See Below Exam Limited By: Physical Impairment General Appearance: Alert, WD/WN, No Apparent Distress, Lethargic Eye Exam: Bilateral Eye: EOMI, PERRL Throat/Mouth: Other (STOMATITIS TO UPPER LIP). No: Normal Lips Head: Atraumatic, Normocephalic Neck: Normal Inspection, Supple, Non-Tender, Full Range of Motion Respiratory/Chest: No Respiratory Distress, Lungs Clear, Normal Breath Sounds, No Accessory Muscle Use, Chest Non-Tender Cardiovascular: Normal Peripheral Pulses, Regular Rate, Rhythm, No Gallop, No JVD, No Murmur, No Rub GI/Abdominal: Normal Bowel Sounds, Soft, Non-Tender, No Organomegaly, No Distention, No Abnormal Bruit, No Mass Back Exam: Normal Inspection, Full Range of Motion, NT Extremities: Normal Inspection, Normal Range of Motion, Non-Tender, Normal Capillary Refill, Pedal Edema Neurological: Alert, Oriented, CN II-XII Intact, Normal Cognition Psychiatric: Depressed Mood, Flat Affect Skin Exam: Wound/Incision (SACRAL DECUBITUS ULCER) Course - Vital Signs Last Recorded V/S: Last Vital Signs Temp 96.0 F L 10/12/21 18:04 Pulse 84 10/12/21 18:04 Resp 16 10/12/21 18:04 BP 153/71 H 10/12/21 18:04 Pulse Ox 97 10/12/21 18:04 - Orders/Labs/Meds Orders: Active Orders 24 hr Category Date Time Status Peripheral IV Care [RC] . DIRECTED Care 10/12/21 17:28 Active CULTURE URINE [RM] Stat Lab 10/12/21 17:35 Received Sodium Chloride 0.9% [Saline Flush] Med 10/12/21 17:28 Active 10 ml FLUSH Q8HR PRN Peripheral IV Insertion Adult [OM.PC] Routine Oth 10/12/21 17:28 Ordered Medication Orders Sodium Chloride (Sodium Chloride 0.9% 10 Ml Syringe) 10 ml FLUSH Q8HR PRN PRN Reason: keep vein open Labs: Laboratory Tests 10/12/21 10/12/21 10/12/21 Range/Units 17:35 17:50 17:50 WBC 10.52 H (5.00-10.00) 10^3/uL RBC 4.00 (3.80-5.50) 10^6/uL Hgb 10.3 L D (12.0-16.0) g/dL Hct 33.5 L (37.0-47.0) % MCV 83.8 D (82.0-92.0) fL MCH 25.8 L (27.0-31.0) pg MCHC 30.7 L (32.0-36.0) g/dL RDW 19.2 H (11.5-14.5) % Plt Count 446 H D (150-400) 10^3/uL MPV 9.9 (7.4-10.4) fL Immature Gran % (Auto) 0.7 (0.0-5.0) % Neut % (Auto) 66.1 (50.0-70.0) % Lymph % (Auto) 24.4 (20.0-40.0) % Pierce % (Auto) 7.9 (2.0-8.0) % Eos % (Auto) 0.6 L (1.0-3.0) % Baso % (Auto) 0.3 (0.0-1.0) % Neut # (Auto) 6.96 (2.50-7.00) 10^3/uL Lymph # (Auto) 2.57 (1.00-4.00) 10^3/uL Pierce # (Auto) 0.83 H (0.10-0.80) 10^3/uL Eos # (Auto) 0.06 L (0.10-0.30) 10^3/uL Baso # (Auto) 0.03 (0.00-0.10) 10^3/uL Immature Gran # (Auto) 0.07 (0.00-0.50) 10^3/uL Sodium 140 (136-145) mmol/L Potassium 3.1 L (3.5-5.1) mmol/L Chloride 99 (98-107) mmol/L Carbon Dioxide 32.7 H (21.0-32.0) mmol/L Anion Gap 11.4 (5-15) mmol/L BUN 18 (7-18) mg/dL Creatinine 0.38 L (0.51-1.17) mg/dL Est Cr Clr Drug Dosing 133.96 mL/min Estimated GFR (MDRD) > 60 mL/min Glucose 96 (70-140) mg/dL Calcium 8.0 L (8.7-10.3) mg/dL Magnesium 2.4 (1.8-2.4) mg/dL Total Bilirubin 0.5 (0.2-1.0) mg/dL AST 17 (15-37) U/L ALT 6 L (14-63) U/L Alkaline Phosphatase 131 H (46-116) U/L Total Protein 6.2 L (6.4-8.2) g/dL Albumin 2.62 L (3.40-5.00) g/dL Specimen Type Urinqcath Urine Color Dark yellow H (YELLOW) Urine Appearance Slightly cloudy H (CLEAR) Urine pH 7.0 (5.0-9.0) Ur Specific [place] 1.020 (1.005-1.030) Urine Protein Trace H (NEGATIVE) mg/dL Urine Glucose (UA) Negative (NEGATIVE) mg/dL Urine Ketones 15 H (NEGATIVE) mg/dL Urine Occult Blood Negative (NEGATIVE) Urine Nitrite Negative (NEGATIVE) Urine Bilirubin Negative (NEGATIVE) Urine Urobilinogen 0.2 (0.2-1.0) E.U./dL Ur Leukocyte Esterase Small H (NEGATIVE) Urine RBC 0-5 (0-5) /HPF Urine WBC 10-20 H (0-5) /HPF Ur Epithelial Cells Occasional /LPF Amorphous Sediment Moderate H (0/HPF) /HPF Urine Bacteria Moderate H (NONE TO FEW) /HPF SARS CoV-2 RNA Rapid NORBERT (NEGATIVE) 10/12/21 Range/Units 18:16 WBC (5.00-10.00) 10^3/uL RBC (3.80-5.50) 10^6/uL Hgb (12.0-16.0) g/dL Hct (37.0-47.0) % MCV (82.0-92.0) fL MCH (27.0-31.0) pg MCHC (32.0-36.0) g/dL RDW (11.5-14.5) % Plt Count (150-400) 10^3/uL MPV (7.4-10.4) fL Immature Gran % (Auto) (0.0-5.0) % Neut % (Auto) (50.0-70.0) % Lymph % (Auto) (20.0-40.0) % Pierce % (Auto) (2.0-8.0) % Eos % (Auto) (1.0-3.0) % Baso % (Auto) (0.0-1.0) % Neut # (Auto) (2.50-7.00) 10^3/uL Lymph # (Auto) (1.00-4.00) 10^3/uL Pierce # (Auto) (0.10-0.80) 10^3/uL Eos # (Auto) (0.10-0.30) 10^3/uL Baso # (Auto) (0.00-0.10) 10^3/uL Immature Gran # (Auto) (0.00-0.50) 10^3/uL Sodium (136-145) mmol/L Potassium (3.5-5.1) mmol/L Chloride (98-107) mmol/L Carbon Dioxide (21.0-32.0) mmol/L Anion Gap (5-15) mmol/L BUN (7-18) mg/dL Creatinine (0.51-1.17) mg/dL Est Cr Clr Drug Dosing mL/min Estimated GFR (MDRD) mL/min Glucose (70-140) mg/dL Calcium (8.7-10.3) mg/dL Magnesium (1.8-2.4) mg/dL Total Bilirubin (0.2-1.0) mg/dL AST (15-37) U/L ALT (14-63) U/L Alkaline Phosphatase (46-116) U/L Total Protein (6.4-8.2) g/dL Albumin (3.40-5.00) g/dL Specimen Type Urine Color (YELLOW) Urine Appearance (CLEAR) Urine pH (5.0-9.0) Ur Specific [place] (1.005-1.030) Urine Protein (NEGATIVE) mg/dL Urine Glucose (UA) (NEGATIVE) mg/dL Urine Ketones (NEGATIVE) mg/dL Urine Occult Blood (NEGATIVE) Urine Nitrite (NEGATIVE) Urine Bilirubin (NEGATIVE) Urine Urobilinogen (0.2-1.0) E.U./dL Ur Leukocyte Esterase (NEGATIVE) Urine RBC (0-5) /HPF Urine WBC (0-5) /HPF Ur Epithelial Cells /LPF Amorphous Sediment (0/HPF) /HPF Urine Bacteria (NONE TO FEW) /HPF SARS CoV-2 RNA Rapid NORBERT Negative (NEGATIVE) Meds: Medications Generic Name Dose Route Start Last Admin Trade Name Freq PRN Reason Stop Dose Admin Sodium Chloride 10 ml 10/12/21 17:28 Sodium Chloride 0.9% 10 Ml Syringe FLUSH Q8HR PRN keep vein open Discontinued Medications Generic Name Dose Route Start Last Admin Trade Name Sharan PRN Reason Stop Dose Admin Sodium Chloride 1,000 mls @ 999 mls/hr 10/12/21 17:28 10/12/21 17:54 Normal Saline IV 10/12/21 18:28 999 mls/hr .BOLUS ONE Administration Departure - Departure Time of Disposition: 20:02 Disposition: Admitted As Inpatient 67 Condition: Poor Clinical Impression: Dehydration, Weight loss Sacral ulcer Qualifiers: Non-pressure ulcer stage: unspecified non-pressure ulcer stage Qualified Code(s): L98.429 - Non-pressure chronic ulcer of back with unspecified severity UTI (urinary tract infection) Qualifiers: Encounter type: initial encounter - Discharge Information Referrals: Agnieszka Flannery MD [Primary Care Provider] - Forms: ED Department Discharge Sepsis Event Note (ED) - Focused Exam Vital Signs: Vital Signs Temp Pulse Resp BP Pulse Ox 10/12/21 18:04 96.0 F L 84 16 153/71 H 97 - My Orders Last 24 Hours: My Active Orders 10/12/21 17:28 Peripheral IV Care [RC] . DIRECTED Sodium Chloride 0.9% [Saline Flush] 10 ml FLUSH Q8HR PRN Peripheral IV Insertion Adult [OM.PC] Routine 10/12/21 17:35 CULTURE URINE [RM] Stat - Assessment/Plan Last 24 Hours: My Active Orders 10/12/21 17:28 Peripheral IV Care [RC] . DIRECTED Sodium Chloride 0.9% [Saline Flush] 10 ml FLUSH Q8HR PRN Peripheral IV Insertion Adult [OM.PC] Routine 10/12/21 17:35 CULTURE URINE [RM] Stat Assessment:: 1. DEHYDRATION 2. URINARY TRACT INFECTION 3. ANOREXIA/WEIGHT LOSS 4. DECONDITIONING 5. SACRAL DECUBITUS ULCER Plan: 1. ADMIT TO MEDICINE- DR GARCIA ACCEPTED @ 1935 2. ADMISSION ORDER PER MEDICINE 3. NS @75CC/HR WITH 40KCL 4. SOCIAL SERVICE CONSULT 5. LABS IN AM- CBC/CMP/URINE CULTURE/BLOOD CULTURES
[2021-10-12] MEDS ORDERED: Sodium Chloride 0.9% with KCl 1,000 ML IV SCH (20:15)
[2021-10-12] MEDS: Carvedilol 6.25 MG Tab PO SCH (22:50)
[2021-10-12] MEDS ORDERED: Albuterol 8 GM Inhaler INH PRN (23:07)
[2021-10-12] MEDS ORDERED: Ondansetron 4 MG Tab.DIS PO PRN (23:07)
[2021-10-12] MEDS ORDERED: CARBIDOPA 25 MG PO SCH (23:15)
[2021-10-12] MEDS ORDERED: ENTACAPONE 200 MG PO SCH (23:15)
[2021-10-13] MEDS ORDERED: Carboxymethylcellulose Sodium 0.5% Ophth Soln 15 ML Bottle EYEBOTH PRN (00:51)
[2021-10-13] MEDS ORDERED: Carbidopa/Levodopa 25-100 MG Tab.ER PO SCH (02:00)
[2021-10-13] MEDS: Acetaminophen 650 MG Tab.ER PO SCH ×2 (03:16→07:23)
[2021-10-13] MEDS: Levothyroxine 50 MCG Tab PO SCH ×2 (06:21→06:32)
[2021-10-13] MEDS: Pantoprazole 40 MG Tab.CR PO SCH ×2 (06:21→06:32)
[2021-10-13 07:33] LABS: ANION GAP 13.2 mmol/L (5-15); CHLORIDE,CL 103 mmol/L (98-107); SODIUM,NA 142 mmol/L (136-145)
[2021-10-13] MEDS ORDERED: Calcium Carbonate 500 MG Tab.Chew PO SCH (08:00)
[2021-10-13] MEDS ORDERED: Fluticasone Propionate Nasal Spray 16 GM Bottle NASBOTH SCH (08:00)
[2021-10-13] MEDS ORDERED: Furosemide 40 MG Tab PO SCH (08:00)
[2021-10-13] MEDS ORDERED: Potassium Chloride 10 MEQ Tab.ER PO SCH (08:00)
[2021-10-13] MEDS ORDERED: Sodium Chloride 0.9% 1,000 ML IV SCH (08:15)
[2021-10-13] MEDS: Carvedilol 6.25 MG Tab PO SCH (08:45)
[2021-10-13] MEDS: Carbidopa/Levodopa 25-100 MG Tab PO SCH ×3 (08:50→16:12)
[2021-10-13] MEDS ORDERED: Aspirin 81 MG Tab.Chew PO SCH (09:00)
[2021-10-13] MEDS ORDERED: Polyethylene Glycol 3350 Powder 17 GM Packet PO SCH (09:00)
[2021-10-13] MEDS ORDERED: Bisacodyl 10 MG Supp RECTAL SCH (09:00)
[2021-10-13] MEDS ORDERED: Lisinopril 5 MG Tab PO SCH (09:00)
--- NOTE | 2021-10-13 11:17 | PCM.HP.2 ---
H&P History of Present Illness - General Date of Service: 10/13/21 Admit Problem/Dx: Admission Diagnosis/Problem Admission Diagnosis/Problem Dehydration - Related Data Allergies/Adverse Reactions: Allergies Allergy/AdvReac Type Severity Reaction Status Date / Time adhesive Allergy Cannot Verified 10/12/21 17:58 Remember bee venom protein (honey bee) Allergy Anaphylactic Verified 10/12/21 17:58 Shock cefdinir Allergy Rash Verified 10/12/21 17:58 ciprofloxacin [From Cipro] Allergy Anaphylactic Verified 10/12/21 17:58 Shock codeine Allergy Cannot Verified 10/12/21 17:58 Remember equine protein Allergy Anaphylactic Verified 10/12/21 17:58 Shock gabapentin Allergy Edema Verified 10/12/21 17:58 ibuprofen Allergy Anaphylactic Verified 10/12/21 17:58 Shock iodine Allergy Anaphylactic Verified 10/12/21 17:58 Shock latex Allergy Rash Verified 10/12/21 17:58 levofloxacin Allergy Anaphylactic Verified 10/12/21 17:58 Shock metronidazole Allergy Hives Verified 10/12/21 17:58 morphine Allergy Anaphylactic Verified 10/12/21 17:58 Shock oxycodone Allergy Cannot Verified 10/12/21 17:58 Remember povidone-iodine Allergy Cannot Verified 10/12/21 17:58 [From Betadine] Remember procaine Allergy Nausea and Verified 10/12/21 17:58 Vomiting shellfish derived Allergy Anaphylactic Verified 10/12/21 17:58 Shock soap [From Betadine] Allergy Cannot Verified 10/12/21 17:58 Remember Sulfa (Sulfonamide Allergy Anaphylactic Verified 10/12/21 17:58 Antibiotics) Shock tetracycline Allergy Anaphylactic Verified 10/12/21 17:58 Shock tramadol Allergy Cannot Verified 10/12/21 17:58 Remember contrast Allergy Anaphylactic Uncoded 08/12/20 10:28 Shock diptheria toxoid Allergy Cannot Uncoded 08/12/20 10:28 Remember troleanolomycin Allergy Anaphylactic Uncoded 08/12/20 10:28 Shock Home Medications: Home Meds Albuterol [Ventolin HFA] 2 puff INH Q4H PRN 05/31/19 [History] Carbidopa 25 mg PO ASDIRECTED 05/31/19 [History] Cyanocobalamin (Vitamin B-12) [Vitamin B-12] 1,000 mcg INJECT Q30D 05/31/19 [History] Entacapone 200 mg PO ASDIRECTED 05/31/19 [History] Fluticasone Propionate [Flonase] 1 spray NASBOTH 05/31/19 [History] Levothyroxine [Synthroid] 50 mcg PO ACBREAKFAST 05/31/19 [History] Magnesium Oxide [Magnesium] 400 mg PO ,05/31/19 [History] Sertraline HCl 150 mg PO BEDTIME 05/31/19 [History] Acetaminophen 650 mg PO Q6HR PRN 08/12/20 [History] Aspirin 81 mg PO DAILY 08/12/20 [History] EPINEPHrine [Epinephrine] 0.15 mg IM DAILY PRN 08/12/20 [History] Eucalyptus Oil/Menthol/Camphor [Chest Rub 4.8%-1.2%-2.6% Stick] 1 applic TOP BEDTIME 08/12/20 [History] Melatonin 5 mg PO BEDTIME 08/12/20 [History] Omeprazole 20 mg PO DAILY 08/12/20 [History] Ondansetron [Zofran] 4 mg PO TID PRN 08/12/20 [History] Pimavanserin Tartrate [Nuplazid] 34 mg PO DAILY 08/12/20 [History] Polyvinyl Alcohol [LiquiTears 1.4% Ophth Soln] 1 drop EYEBOTH BID PRN 08/12/20 [History] QUEtiapine Fumarate [Quetiapine Fumarate] 75 mg PO BEDTIME 08/12/20 [History] ARIPiprazole [Abilify] 2 mg PO BEDTIME 10/12/21 [History] Acetaminophen [Tylenol Arthritis] 650 mg PO 10/12/21 [History] Calcium Carbonate [Oyster Shell Calcium] 500 mg PO 10/12/21 [History] Camphor/Eucalyptus/Menthol [Vicks Vaposteam Liquid] 236 ml TOP ASDIRECTED 10/12/21 [History] Carbidopa/Levodopa [Carbidopa-Levo ER 50-200] 1 tab PO 199,199910/12/21 [History] Carbidopa/Levodopa [Carbidopa-Levodopa 25-100] 3 tab PO QID 10/12/21 [History] Fexofenadine HCl 180 mg PO BEDTIME 10/12/21 [History] Magnesium Hydroxide [Milk of Magnesia] 30 ml PO DAILY PRN 10/12/21 [History] Metoclopramide HCl 5 mg PO 0730,1130,1700 10/12/21 [History] Potassium Chloride [Klor-Con 10] 10 meq PO 08,18 10/12/21 [History] Trolamine Salicylate/Aloe Vera [Aspercreme 10%] 1 applic TOP BID PRN 10/12/21 [History] Ubidecarenone [Co Q-10] 100 mg PO 1800 10/12/21 [History] Amoxicillin/Clavulanate K [Augmentin 875-125 MG] 1 tab PO Q12HR tablet 10/13/21 [Rx] Past Medical History HEENT History: Reports: Cataract, Impaired Vision Cardiovascular History: Reports: Hypertension, Other (See Below) Other Cardiovascular History: Heart disease. Respiratory History: Reports: Asthma Gastrointestinal History: Reports: GERD Genitourinary History: Reports: Renal Calculus [employer] OFFICER History: Reports: Endometriosis, Neurological History: Reports: Parkinson's Psychiatric History: Reports: Anxiety, Depression Other Psychiatric History: "pyschotic disorder, mood disorder, dysthmic disorder" Endocrine/Metabolic History: Reports: Hypothyroidism, Obesity/BMI 30+, Vitamin D Deficiency, Other (See Below) Other Endocrine/Metabolic History: Magnesium deficiency Hematologic History: Reports: None Immunologic History: Reports: None Oncologic (Cancer) History: Reports: None Dermatologic History: Reports: Eczema - Infectious Disease History Infectious Disease History: Reports: Chicken Pox - Past Surgical History HEENT Surgical History: Reports: Tonsillectomy Cardiovascular Surgical History: Reports: None Respiratory Surgical History: Reports: None Female Surgical History: Reports: Oophorectomy, Other (See Below) Other Female Surgeries/Procedures: "bladder uplift" Neurological Surgical History: Reports: Other (See Below) Other Neurological Surgeries/Procedures: Deep brain simulation device for Parkinsons Musculoskeletal Surgical History: Reports: Knee Replacement Dermatological Surgical History: Reports: None Social & Family History - Family History Family Medical History: No Pertinent Family History - Tobacco Use Tobacco Use Status *Q: Never Tobacco User - Caffeine Use Caffeine Use: Reports: Soda - Recreational Drug Use Recreational Drug Use: No H&P Review of Systems - Review of Systems: Review Of Systems: See Below Free Text/Narrative: Unable to obtain full ROS due to patient status General: Reports: Weakness, Weight Loss Genitourinary: Reports: Dysuria, Frequency, Urgency. Denies: Hematuria Skin: Reports: Dryness, Other (fragile skin, yellow discoloration of fingernails) Psychiatric: Reports: Depression Neurological: Reports: Weakness Exam - Exam Exam: See Below - Vital Signs Vital Signs: Last Vital Signs Temp 97.0 F 10/13/21 06:34 Pulse 51 L 10/13/21 08:45 Resp 20 10/13/21 06:34 BP 106/54 L 10/13/21 08:45 Pulse Ox 94 L 10/13/21 06:34 Weight: 193 lb 2 oz - Exam Quality Assessment: Skin Breakdown (sacral ulcer present upon admission, ulceration of R upper lip ). No: Supplemental Oxygen General: Alert, Cooperative. No: Mild Distress HEENT: Conjunctiva Clear, Mucosa Moist & [place], Rhinitis, Other (R upper lip ulceration) Neck: Supple, Trachea Midline, +2 Carotid Pulse wo Bruit. No: JVD Lungs: Decreased Breath Sounds. No: Crackles, Rhonchi, Wheezing Cardiovascular: Regular Rate, Regular Rhythm. No: Systolic Murmur GI/Abdominal Exam: Normal Bowel Sounds, Soft, Non-Tender, No Distention (Female) Exam: Deferred Rectal (Female) Exam: Deferred Extremities: Non-Tender, No Pedal Edema, Normal Capillary Refill, Limited Range of Motion (hx parkinsons, chronic generalized weakness) Peripheral Pulses: 2+: Dorsalis Pedis (L), Dorsalis Pedis (R) Skin: Warm, Dry, Wound (stage 2-3 sacral ulcer ), Decubitis. No: Intact Neuro Extensive - Mental Status: Inattentive, Slow Response to Commands Neuro Extensive - Motor, Sensory, Reflexes: Dysarthria Psychiatric: Alert, Depressed - Patient Data Lab Results Last 24 hrs: Laboratory Results - last 24 hr 10/12/21 10/12/21 10/12/21 Range/Units 17:35 17:50 17:50 WBC 10.52 H (5.00-10.00) 10^3/uL RBC 4.00 (3.80-5.50) 10^6/uL Hgb 10.3 L D (12.0-16.0) g/dL Hct 33.5 L (37.0-47.0) % MCV 83.8 D (82.0-92.0) fL MCH 25.8 L (27.0-31.0) pg MCHC 30.7 L (32.0-36.0) g/dL RDW 19.2 H (11.5-14.5) % Plt Count 446 H D (150-400) 10^3/uL MPV 9.9 (7.4-10.4) fL Immature Gran % (Auto) 0.7 (0.0-5.0) % Neut % (Auto) 66.1 (50.0-70.0) % Lymph % (Auto) 24.4 (20.0-40.0) % [place] % (Auto) 7.9 (2.0-8.0) % Eos % (Auto) 0.6 L (1.0-3.0) % Baso % (Auto) 0.3 (0.0-1.0) % Neut # (Auto) 6.96 (2.50-7.00) 10^3/uL Lymph # (Auto) 2.57 (1.00-4.00) 10^3/uL [place] # (Auto) 0.83 H (0.10-0.80) 10^3/uL Eos # (Auto) 0.06 L (0.10-0.30) 10^3/uL Baso # (Auto) 0.03 (0.00-0.10) 10^3/uL Immature Gran # (Auto) 0.07 (0.00-0.50) 10^3/uL Sodium 140 (136-145) mmol/L Potassium 3.1 L (3.5-5.1) mmol/L Chloride 99 (98-107) mmol/L Carbon Dioxide 32.7 H (21.0-32.0) mmol/L Anion Gap 11.4 (5-15) mmol/L BUN 18 (7-18) mg/dL Creatinine 0.38 L (0.51-1.17) mg/dL Est Cr Clr Drug Dosing 133.96 mL/min Estimated GFR (MDRD) > 60 mL/min Glucose 96 (70-140) mg/dL Calcium 8.0 L (8.7-10.3) mg/dL Magnesium 2.4 (1.8-2.4) mg/dL Total Bilirubin 0.5 (0.2-1.0) mg/dL AST 17 (15-37) U/L ALT 6 L (14-63) U/L Alkaline Phosphatase 131 H (46-116) U/L Total Protein 6.2 L (6.4-8.2) g/dL Albumin 2.62 L (3.40-5.00) g/dL Specimen Type Urin[place] Urine Color Dark yellow H (YELLOW) Urine Appearance Slightly cloudy H (CLEAR) Urine pH 7.0 (5.0-9.0) Ur Specific [place] 1.020 (1.005-1.030) Urine Protein Trace H (NEGATIVE) mg/dL Urine Glucose (UA) Negative (NEGATIVE) mg/dL Urine Ketones 15 H (NEGATIVE) mg/dL Urine Occult Blood Negative (NEGATIVE) Urine Nitrite Negative (NEGATIVE) Urine Bilirubin Negative (NEGATIVE) Urine Urobilinogen 0.2 (0.2-1.0) E.U./dL Ur Leukocyte Esterase Small H (NEGATIVE) Urine RBC 0-5 (0-5) /HPF Urine WBC 10-20 H (0-5) /HPF Ur Epithelial Cells Occasional /LPF Amorphous Sediment Moderate H (0/HPF) /HPF Urine Bacteria Moderate H (NONE TO FEW) /HPF SARS CoV-2 RNA Rapid NORBERT (NEGATIVE) 10/12/21 10/13/21 10/13/21 Range/Units 18:16 07:05 07:05 WBC 10.59 H (5.00-10.00) 10^3/uL RBC 3.46 L (3.80-5.50) 10^6/uL Hgb 8.8 L D (12.0-16.0) g/dL Hct 28.8 L (37.0-47.0) % MCV 83.2 (82.0-92.0) fL MCH 25.4 L (27.0-31.0) pg MCHC 30.6 L (32.0-36.0) g/dL RDW 19.3 H (11.5-14.5) % Plt Count 393 (150-400) 10^3/uL MPV 9.9 (7.4-10.4) fL Immature Gran % (Auto) 0.5 (0.0-5.0) % Neut % (Auto) 57.7 (50.0-70.0) % Lymph % (Auto) 33.1 (20.0-40.0) % [place] % (Auto) 7.5 (2.0-8.0) % Eos % (Auto) 0.8 L (1.0-3.0) % Baso % (Auto) 0.4 (0.0-1.0) % Neut # (Auto) 6.12 (2.50-7.00) 10^3/uL Lymph # (Auto) 3.51 (1.00-4.00) 10^3/uL [place] # (Auto) 0.79 (0.10-0.80) 10^3/uL Eos # (Auto) 0.08 L (0.10-0.30) 10^3/uL Baso # (Auto) 0.04 (0.00-0.10) 10^3/uL Immature Gran # (Auto) 0.05 (0.00-0.50) 10^3/uL Sodium 142 (136-145) mmol/L Potassium 3.7 (3.5-5.1) mmol/L Chloride 103 (98-107) mmol/L Carbon Dioxide 29.5 (21.0-32.0) mmol/L Anion Gap 13.2 (5-15) mmol/L BUN 15 (7-18) mg/dL Creatinine 0.32 L (0.51-1.17) mg/dL Est Cr Clr Drug Dosing 159.08 mL/min Estimated GFR (MDRD) > 60 mL/min Glucose 82 (70-140) mg/dL Calcium 7.8 L (8.7-10.3) mg/dL Magnesium 2.4 (1.8-2.4) mg/dL Total Bilirubin 0.5 (0.2-1.0) mg/dL AST 18 (15-37) U/L ALT 6 L (14-63) U/L Alkaline Phosphatase 117 H (46-116) U/L Total Protein 5.4 L (6.4-8.2) g/dL Albumin 2.28 L (3.40-5.00) g/dL Specimen Type Urine Color (YELLOW) Urine Appearance (CLEAR) Urine pH (5.0-9.0) Ur Specific [place] (1.005-1.030) Urine Protein (NEGATIVE) mg/dL Urine Glucose (UA) (NEGATIVE) mg/dL Urine Ketones (NEGATIVE) mg/dL Urine Occult Blood (NEGATIVE) Urine Nitrite (NEGATIVE) Urine Bilirubin (NEGATIVE) Urine Urobilinogen (0.2-1.0) E.U./dL Ur Leukocyte Esterase (NEGATIVE) Urine RBC (0-5) /HPF Urine WBC (0-5) /HPF Ur Epithelial Cells /LPF Amorphous Sediment (0/HPF) /HPF Urine Bacteria (NONE TO FEW) /HPF SARS CoV-2 RNA Rapid NORBERT Negative (NEGATIVE) Result Diagrams: 10/13/21 07:05 10/13/21 07:05 Jacob Results Last 24 hrs: Microbiology 10/12/21 20:04 Urine Culture - Final Urine, Voided Sepsis Event Note - Evaluation Sepsis Screening Result: No Definite Risk - Focused Exam Vital Signs: Vital Signs Temp Pulse Pulse Resp BP BP Pulse Ox 10/13/21 08:45 51 L 106/54 L 10/13/21 06:34 97.0 F 71 20 106/54 L 94 L 10/13/21 03:00 96.5 F L 73 20 107/57 L 93 L Problem List Initiated/Reviewed/Updated: Yes Orders Last 24hrs: Active Orders 24 hr Category Date Time Status Admission Status [Patient Status] [ADT] Routine ADT 10/12/21 20:03 Active Dietary Supplements [RC] QIDACANDBED Care 10/13/21 07:16 Active Oxygen Therapy [RC] PRN Care 10/12/21 20:04 Active Peripheral IV Care [RC] . DIRECTED Care 10/12/21 17:28 Active RT Post Treatment Assessment [RC] Click to Edit Care 10/12/21 23:20 Active RT Pre-Treatment Assessment [RC] Click to Edit Care 10/12/21 23:20 Active Up With Assistance [RC] ASDIRECTED Care 10/12/21 20:04 Active VTE/DVT Education [RC] PER UNIT ROUTINE Care 10/12/21 20:04 Active Vital Signs [RC] 03,07,11,15,19,23 Care 10/12/21 20:04 Active Consult to Case Management/Geothermal Installer [CONS] Cons 10/12/21 20:04 Active Routine Regular Diet [DIET] Diet 10/13/21 Breakfast Active CULTURE BLOOD [BC] Stat Lab 10/12/21 20:50 Received CULTURE BLOOD [BC] Stat Lab 10/12/21 21:10 Received CULTURE URINE [RM] Stat Lab 10/12/21 17:35 Received URINE ID [[id number]] Stat Lab 10/12/21 20:04 Received ARIPiprazole Med 10/13/21 21:00 Pending 2 mg PO BEDTIME Acetaminophen [Tylenol Arthritis Pain] Med 10/13/21 08:00 Active 650 mg PO 08,18 Albuterol [Ventolin HFA] Med 10/12/21 23:07 Active 0 gm INH Q4H PRN Aspirin Med 10/13/21 09:00 Active 81 mg PO DAILY Calcium Carbonate [Tums] Med 10/13/21 08:00 Active 500 mg PO 08,18 Carbidopa [Carbidopa] Med 10/12/21 23:15 Pending 25 mg PO ASDIRECTED Carbidopa/Levodopa [Sinemet 25-100 mg] Med 10/13/21 08:30 Active 3 tab PO 0830,1130,1430,1730 Carbidopa/Levodopa [Sinemet Cr 25-100 mg] Med 10/13/21 02:00 Active 2 tab PO 0200,2000 Carboxymethylcellulose Sodium [Refresh Tears 0.5%] Med 10/13/21 00:51 Active 0 ml EYEBOTH BID PRN Docusate Sodium/Sennosides [Senna Plus] Med 10/13/21 08:00 Active 1 tab PO 08,17 Entacapone [Entacapone] Med 10/12/21 23:15 Pending 200 mg PO ASDIRECTED Fexofenadine HCl [Fexofenadine HCl] Med 10/13/21 21:00 Pending 180 mg PO BEDTIME Fluticasone Propionate [Flonase] Med 10/13/21 08:00 Active 0 gm NASBOTH 08,18 Furosemide [Lasix] Med 10/13/21 08:00 Hold 40 mg PO 08,12 Levothyroxine [Synthroid] Med 10/13/21 07:30 Active 50 mcg PO ACBREAKFAST Ondansetron [Zofran ODT] Med 10/12/21 23:07 Active 4 mg PO TID PRN Pantoprazole [ProTONIX] Med 10/13/21 07:30 Active 40 mg PO ACBREAKFAST Pimavanserin Tartrate [Nuplazid] Med 10/13/21 09:00 Pending 34 mg PO DAILY Potassium Chloride [Klor-Con 10] Med 10/13/21 08:00 Active 10 meq PO QUEtiapine [SEROqueL] Med 10/13/21 21:00 Active 75 mg PO BEDTIME Sertraline [Zoloft] Med 10/13/21 21:00 Active 150 mg PO BEDTIME Sodium Chloride 0.9% [Normal Saline] 1,000 ml Med 10/13/21 08:15 Active IV ASDIRECTED bisacodyL [Dulcolax] Med 10/13/21 09:00 Active 10 mg RECTAL DAILY carvediloL [Coreg] Med 10/12/21 23:15 Active 3.125 mg PO BID lisinopriL [Prinivil] Med 10/13/21 09:00 Hold 5 mg PO DAILY polyethylene glycoL 3350 [MiraLAX] Med 10/13/21 09:00 Active 17 gm PO DAILY Blood Culture x2 Reflex Set [OM.PC] AM Oth 10/13/21 05:11 Ordered Peripheral IV Insertion Adult [OM.PC] Routine Oth 10/12/21 17:28 Ordered Resuscitation Status Routine Resus Stat 10/12/21 20:04 Ordered Medication Orders Acetaminophen (Acetaminophen 650 Mg Tab.Er) 650 mg PO [facility] Last Admin: 10/13/21 07:23 Dose: Not Given Documented by: Admin: 10/13/21 03:16 Dose: 650 mg Documented by: JACE Albuterol (Albuterol 8 Gm Inhaler) 0 gm INH Q4H PRN PRN Reason: Shortness of Breath Artificial Tears (Carboxymethylcellulose Sodium 0.5% Ophth Soln 15 Ml Bottle) 0 ml EYEBOTH BID PRN PRN Reason: Dry Eyes Aspirin (Aspirin 81 Mg Tab.Chew) 81 mg PO DAILY [facility] Last Admin: 10/13/21 08:42 Dose: 81 mg Documented by: RAE Bisacodyl (Bisacodyl 10 Mg Supp) 10 mg RECTAL DAILY [facility] Last Admin: 10/13/21 08:43 Dose: Not Given Documented by: RAE Calcium Carbonate/Glycine (Calcium Carbonate 500 Mg Tab.Chew) 500 mg PO [facility] Last Admin: 10/13/21 08:42 Dose: 500 mg Documented by: RAE Carbidopa/Levodopa (Carbidopa/Levodopa 25-100 Mg Tab.Er) 2 tab PO 0200,2000 [facility] Last Admin: 10/13/21 01:06 Dose: 2 tab Documented by: JACE Carbidopa/Levodopa (Carbidopa/Levodopa 25-100 Mg Tab) 3 tab PO 0830,1130,1430,1730 [facility] Last Admin: 10/13/21 11:10 Dose: 3 tab Documented by: Admin: 10/13/21 08:50 Dose: 3 tab Documented by: RAE Carvedilol (Carvedilol 6.25 Mg Tab) 3.125 mg PO BID [facility] Last Admin: 10/13/21 08:45 Dose: 3.125 mg Documented by: Admin: 10/12/21 22:50 Dose: 3.125 mg Documented by: JACE Fluticasone Propionate (Fluticasone Propionate Nasal [place] 16 Gm Bottle) 0 gm NASBOTH [facility] Last Admin: 10/13/21 08:41 Dose: 1 spray Documented by: RAE Furosemide (Furosemide 40 Mg Tab) 40 mg PO 0812 [facility] Sodium Chloride (Normal Saline) 1,000 mls @ 75 mls/hr IV ASDIRECTED [facility] Last Admin: 10/13/21 11:00 Dose: 75 mls/hr Documented by: RAE Levothyroxine Sodium (Levothyroxine 50 Mcg Tab) 50 mcg PO ACBREAKFAST [facility] Last Admin: 10/13/21 06:32 Dose: Not Given Documented by: Admin: 10/13/21 06:21 Dose: 50 mcg Documented by: JACE Lisinopril (Lisinopril 5 Mg Tab) 5 mg PO DAILY [facility] Non-Formulary Medication (Aripiprazole) 2 mg PO BEDTIME [facility] Non-Formulary Medication (Carbidopa [Carbidopa]) 25 mg PO ASDIRECTED [facility] Non-Formulary Medication (Entacapone [Entacapone]) 200 mg PO ASDIRECTED [facility] Non-Formulary Medication (Fexofenadine Hcl [Fexofenadine Hcl]) 180 mg PO BEDTIME [facility] Non-Formulary Medication (Pimavanserin Tartrate [Nuplazid]) 34 mg PO DAILY [facility] Ondansetron HCl (Ondansetron 4 Mg Tab.Dis) 4 mg PO TID PRN PRN Reason: nausea and vomiting Pantoprazole Sodium (Pantoprazole 40 Mg Tab.Cr) 40 mg PO ACBREAKFAST [facility] Last Admin: 10/13/21 06:32 Dose: Not Given Documented by: Admin: 10/13/21 06:21 Dose: 40 mg Documented by: JACE Polyethylene Glycol (Polyethylene Glycol 3350 Powder 17 Gm Packet) 17 gm PO DAILY [facility] Last Admin: 10/13/21 08:43 Dose: Not Given Documented by: RAE Potassium Chloride (Potassium Chloride 10 Meq Tab.Er) 10 meq PO 08,18 [facility] Last Admin: 10/13/21 08:41 Dose: 10 meq Documented by: RAE Quetiapine Fumarate (Quetiapine 25 Mg Tab) 75 mg PO BEDTIME [facility] Senna/Docusate Sodium (Docusate Sodium/Sennosides 50-8.6 Mg Tab) 1 tab PO [facility] Last Admin: 10/13/21 08:42 Dose: Not Given Documented by: RAE Sertraline HCl (Sertraline 50 Mg Tab) 150 mg PO BEDTIME [facility] Assessment/Plan Comment:: HPI summary: Audrey is a 71yF patient who was brought to the ER by private vehicle by her Cleo browning from [facility] [place] in [place], [place] due to concerns of weakness, weight loss of > 40 pounds over the past few months, worsening sacral ulcer, right upper lip ulceration and progressive decline. Patient was seen by neurology per telemedicine yesterday with changes in carbidopa/levodopa dosing intervals and proposed changes to psych meds, though none were changed due to reported nausea for which patient takes zofran QID prior to her parkinsons' medications. ED course: IV bolus 1L NS given in ER. Hospital course: 10/13/21: Patient reports s/s of UTI including burning with urination, urinary frequency and urgency. Patient's daughter expressed concerns regarding patient's medications including anti-hypertensives and diuretics for which patient takes for a history of diastolic heart failure, however daughter is adamant that patient has not had an echo and does not have heart failure. Will obtain an outpatient echo on outpatient basis to evaluate for heart failure as no echo on file. Daughter requesting to have laxatives held due to diarrhea. Cleo also requesting for social services counselor to inquire as to possible other long-term for patient to reside at as she is unhappy with the care that her mother has been receiving for the past six months. Right upper lip ulceration also noted of concern, SNF staff have been applying abreva five times daily without improvement in "cold sore." Sacral ulcer worsening and patient has had poor oral intake of both food and fluids recently. Due to significant weight loss patient has had some initial workup to evaluate for possible neoplastic etiology. 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 [facility] # Recent weight loss of > 40-50 pounds # Malnutrition - albumin 2.28 # Sacral ulcer - stage 2-3 present upon admission - would do # Ulceration of R upper lip # UTI - Urine culture > 100,000 ecoli on prelim; final culture remains pending - Course of Augmentin 875/125mg PO BID started today to start 7 day course Chronic, stable conditions: # HTN - takes lisinopril 5mg PO daily # Hx of diastolic HF, no echo on file - on lasix 40mg PO BID, coreg 3.125mg PO BID # Hx of CVA - Takes ASA 81mg PO daily # Parkinson's disease - carbidopa/levodopa 25-100mg QID, carbidopa 25mg QID, entacapone 200mg QID, carbidopa/levodopa 50-200mg CR tab at HS and between 0000- 0400 if awake # Hypothyroidism (acquired) - takes levothyroxine 50mcg PO daily # Chronic nausea - zofran 8mg PO QID prior to parkinson's medication # Seasonal allergic rhinitis - takes fexofenadine 180mg PO daily, flonase 1 spray to each nostril BID, albuterol 2 puffs Q4H PRN # Severe anxiety/Recurrent major depression - takes sertraline 150mg PO daily # Schizoaffective disorder - takes aripiprazole 2mg PO HS daily, quetiapine 75mg PO daily # Greater trochanteric bursitis # Progressive anemia # Hypokalemia - takes potassium chloride 10mEq PO BID # Vitamin B12 deficiency - 1000mcg/ml IM injection monthly # Vitamin D deficiency - [place] 500mg PO BID # GERD - takes omeprazole 20mg PO daily # Chronic constipation - takes miralax 17g PO daily, senna + PO BID, milk of mag daily PRN, bisacodyl supp daily PRN # Generalized pain - Tylenol arthritis 1300mg PO BID # Eczema # Presence of neurostimulator # Obesity, BMI 30.9 Hospitalization details: # FEN: NS @ 75ml/hr, electrolytes stable, # PPX: Continue home ASA 81mg, omeprazole 20mg # Code status: FULL CODE # Emergency contact: DaughterCleo # Disposition: office services assistant unable to provide placement in alternative correction facility.
[2021-10-13] MEDS ORDERED: Amoxicillin/Clavulanate K 875-125 MG Tab PO SCH (12:45)
--- NOTE | 2021-10-13 13:56 | PCM.DCSUM1 ---
Discharge Summary - Hospital Course Free Text/Narrative:: Date of admission: 10/12/21 Date of discharge: 10/13/21 Admission diagnoses: Discharge diagnoses: Hospital course: Discharge and follow-up recommendations: - Discharge to [facility] - New medications at discharge: - Follow-up - Discharge Data Discharge Disposition: DC/Tfer to SNF 03 Condition: Good - Referral to Home Health Primary Care Physician: Agnieszka Flannery MD - Patient Summary/Data Consults: Consultations 10/12/21 20:04 Consult to Case Management/Reel Cutter [CONS] Routine - Patient Instructions Diet: Usual Diet as Tolerated Driving: Do Not Drive Showering/Bathing, Other: Baths three times weekly on M,W,F and apply a new foam dressing to coccyx Other/Special Instructions: - Apply vaseline QID to Right upper lip. - Orders placed for echocardiogram to evaluate for dx of CHF - Discharge Plan *PRESCRIPTION DRUG MONITORING PROGRAM REVIEWED*: Not Applicable *COPY OF PRESCRIPTION DRUG MONITORING REPORT IN PATIENT BETH: Not Applicable Home Medications: Home Meds Albuterol [Ventolin HFA] 2 puff INH Q4H PRN 05/31/19 [History] Carbidopa 25 mg PO ASDIRECTED 05/31/19 [History] Cyanocobalamin (Vitamin B-12) [Vitamin B-12] 1,000 mcg INJECT Q30D 05/31/19 [History] Entacapone 200 mg PO ASDIRECTED 05/31/19 [History] Fluticasone Propionate [Flonase] 1 spray NASBOTH 05/31/19 [History] Levothyroxine [Synthroid] 50 mcg PO ACBREAKFAST 05/31/19 [History] Magnesium Oxide [Magnesium] 400 mg PO 05/31/19 [History] Sertraline HCl 150 mg PO BEDTIME 05/31/19 [History] Acetaminophen 650 mg PO Q6HR PRN 08/12/20 [History] Aspirin 81 mg PO DAILY 08/12/20 [History] EPINEPHrine [Epinephrine] 0.15 mg IM DAILY PRN 08/12/20 [History] Eucalyptus Oil/Menthol/Camphor [Chest Rub 4.8%-1.2%-2.6% Stick] 1 applic TOP BEDTIME 08/12/20 [History] Melatonin 5 mg PO BEDTIME 08/12/20 [History] Omeprazole 20 mg PO DAILY 08/12/20 [History] Ondansetron [Zofran] 4 mg PO TID PRN 08/12/20 [History] Pimavanserin Tartrate [Nuplazid] 34 mg PO DAILY 08/12/20 [History] Polyvinyl Alcohol [LiquiTears 1.4% Ophth Soln] 1 drop EYEBOTH BID PRN 08/12/20 [History] QUEtiapine Fumarate [Quetiapine Fumarate] 75 mg PO BEDTIME 08/12/20 [History] ARIPiprazole [Abilify] 2 mg PO BEDTIME 10/12/21 [History] Acetaminophen [Tylenol Arthritis] 650 mg PO ,10/12/21 [History] Calcium Carbonate [Oyster Shell Calcium] 500 mg PO ,10/12/21 [History] Camphor/Eucalyptus/Menthol [Vicks Vaposteam Liquid] 236 ml TOP ASDIRECTED 10/12/21 [History] Carbidopa/Levodopa [Carbidopa-Levo ER 50-200] 1 tab PO 0200,199910/12/21 [History] Carbidopa/Levodopa [Carbidopa-Levodopa 25-100] 3 tab PO QID 10/12/21 [History] Fexofenadine HCl 180 mg PO BEDTIME 10/12/21 [History] Magnesium Hydroxide [Milk of Magnesia] 30 ml PO DAILY PRN 10/12/21 [History] Metoclopramide HCl 5 mg PO 0730,1130,1700 10/12/21 [History] Potassium Chloride [Klor-Con 10] 10 meq PO ,10/12/21 [History] Trolamine Salicylate/Aloe Vera [Aspercreme 10%] 1 applic TOP BID PRN 10/12/21 [History] Ubidecarenone [Co Q-10] 100 mg PO 1800 10/12/21 [History] Amoxicillin/Clavulanate K [Augmentin 875-125 MG] 1 tab PO Q12HR tablet 10/13/21 [Rx] Oxygen Therapy Mode: Room Air Referrals: Agnieszka Flannery MD [Primary Care Provider] - (Will request for Cecilia Sarabia to round on resident on 10/19/21 ) Cecilia Sarabia PA-C [Physician [employer] Automotive Technician] - - Discharge Summary/Plan Comment DC Time >30 min.: Yes Total # of Minutes for Discharge Time: 45 - General Info Date of Service: 10/13/21 - Patient Data Vitals - Most Recent: Last Vital Signs Temp 97.2 F 10/13/21 13:26 Pulse 68 10/13/21 13:26 Resp 19 10/13/21 13:26 BP 104/52 L 10/13/21 13:26 Pulse Ox 95 10/13/21 13:26 Weight - Most Recent: 193 lb 2 oz I&O - Last 24 hours: Intake & Output 10/12/21 10/13/21 10/13/21 22:59 06:59 14:59 Intake Total 1070 695 Balance 1070 695 Lab Results - Last 24 hrs: Laboratory Results - last 24 hr 10/12/21 10/12/21 10/12/21 Range/Units 17:35 17:50 17:50 WBC 10.52 H (5.00-10.00) 10^3/uL RBC 4.00 (3.80-5.50) 10^6/uL Hgb 10.3 L D (12.0-16.0) g/dL Hct 33.5 L (37.0-47.0) % MCV 83.8 D (82.0-92.0) fL MCH 25.8 L (27.0-31.0) pg MCHC 30.7 L (32.0-36.0) g/dL RDW 19.2 H (11.5-14.5) % Plt Count 446 H D (150-400) 10^3/uL MPV 9.9 (7.4-10.4) fL Immature Gran % (Auto) 0.7 (0.0-5.0) % Neut % (Auto) 66.1 (50.0-70.0) % Lymph % (Auto) 24.4 (20.0-40.0) % Pender % (Auto) 7.9 (2.0-8.0) % Eos % (Auto) 0.6 L (1.0-3.0) % Baso % (Auto) 0.3 (0.0-1.0) % Neut # (Auto) 6.96 (2.50-7.00) 10^3/uL Lymph # (Auto) 2.57 (1.00-4.00) 10^3/uL Pender # (Auto) 0.83 H (0.10-0.80) 10^3/uL Eos # (Auto) 0.06 L (0.10-0.30) 10^3/uL Baso # (Auto) 0.03 (0.00-0.10) 10^3/uL Immature Gran # (Auto) 0.07 (0.00-0.50) 10^3/uL Sodium 140 (136-145) mmol/L Potassium 3.1 L (3.5-5.1) mmol/L Chloride 99 (98-107) mmol/L Carbon Dioxide 32.7 H (21.0-32.0) mmol/L Anion Gap 11.4 (5-15) mmol/L BUN 18 (7-18) mg/dL Creatinine 0.38 L (0.51-1.17) mg/dL Est Cr Clr Drug Dosing 133.96 mL/min Estimated GFR (MDRD) > 60 mL/min Glucose 96 (70-140) mg/dL Calcium 8.0 L (8.7-10.3) mg/dL Magnesium 2.4 (1.8-2.4) mg/dL Total Bilirubin 0.5 (0.2-1.0) mg/dL AST 17 (15-37) U/L ALT 6 L (14-63) U/L Alkaline Phosphatase 131 H (46-116) U/L Total Protein 6.2 L (6.4-8.2) g/dL Albumin 2.62 L (3.40-5.00) g/dL Specimen Type Urinqcath Urine Color Dark yellow H (YELLOW) Urine Appearance Slightly cloudy H (CLEAR) Urine pH 7.0 (5.0-9.0) Ur Specific Quail 1.020 (1.005-1.030) Urine Protein Trace H (NEGATIVE) mg/dL Urine Glucose (UA) Negative (NEGATIVE) mg/dL Urine Ketones 15 H (NEGATIVE) mg/dL Urine Occult Blood Negative (NEGATIVE) Urine Nitrite Negative (NEGATIVE) Urine Bilirubin Negative (NEGATIVE) Urine Urobilinogen 0.2 (0.2-1.0) E.U./dL Ur Leukocyte Esterase Small H (NEGATIVE) Urine RBC 0-5 (0-5) /HPF Urine WBC 10-20 H (0-5) /HPF Ur Epithelial Cells Occasional /LPF Amorphous Sediment Moderate H (0/HPF) /HPF Urine Bacteria Moderate H (NONE TO FEW) /HPF SARS CoV-2 RNA Rapid NORBERT (NEGATIVE) 10/12/21 10/13/21 10/13/21 Range/Units 18:16 07:05 07:05 WBC 10.59 H (5.00-10.00) 10^3/uL RBC 3.46 L (3.80-5.50) 10^6/uL Hgb 8.8 L D (12.0-16.0) g/dL Hct 28.8 L (37.0-47.0) % MCV 83.2 (82.0-92.0) fL MCH 25.4 L (27.0-31.0) pg MCHC 30.6 L (32.0-36.0) g/dL RDW 19.3 H (11.5-14.5) % Plt Count 393 (150-400) 10^3/uL MPV 9.9 (7.4-10.4) fL Immature Gran % (Auto) 0.5 (0.0-5.0) % Neut % (Auto) 57.7 (50.0-70.0) % Lymph % (Auto) 33.1 (20.0-40.0) % Pender % (Auto) 7.5 (2.0-8.0) % Eos % (Auto) 0.8 L (1.0-3.0) % Baso % (Auto) 0.4 (0.0-1.0) % Neut # (Auto) 6.12 (2.50-7.00) 10^3/uL Lymph # (Auto) 3.51 (1.00-4.00) 10^3/uL Pender # (Auto) 0.79 (0.10-0.80) 10^3/uL Eos # (Auto) 0.08 L (0.10-0.30) 10^3/uL Baso # (Auto) 0.04 (0.00-0.10) 10^3/uL Immature Gran # (Auto) 0.05 (0.00-0.50) 10^3/uL Sodium 142 (136-145) mmol/L Potassium 3.7 (3.5-5.1) mmol/L Chloride 103 (98-107) mmol/L Carbon Dioxide 29.5 (21.0-32.0) mmol/L Anion Gap 13.2 (5-15) mmol/L BUN 15 (7-18) mg/dL Creatinine 0.32 L (0.51-1.17) mg/dL Est Cr Clr Drug Dosing 159.08 mL/min Estimated GFR (MDRD) > 60 mL/min Glucose 82 (70-140) mg/dL Calcium 7.8 L (8.7-10.3) mg/dL Magnesium 2.4 (1.8-2.4) mg/dL Total Bilirubin 0.5 (0.2-1.0) mg/dL AST 18 (15-37) U/L ALT 6 L (14-63) U/L Alkaline Phosphatase 117 H (46-116) U/L Total Protein 5.4 L (6.4-8.2) g/dL Albumin 2.28 L (3.40-5.00) g/dL Specimen Type Urine Color (YELLOW) Urine Appearance (CLEAR) Urine pH (5.0-9.0) Ur Specific Quail (1.005-1.030) Urine Protein (NEGATIVE) mg/dL Urine Glucose (UA) (NEGATIVE) mg/dL Urine Ketones (NEGATIVE) mg/dL Urine Occult Blood (NEGATIVE) Urine Nitrite (NEGATIVE) Urine Bilirubin (NEGATIVE) Urine Urobilinogen (0.2-1.0) E.U./dL Ur Leukocyte Esterase (NEGATIVE) Urine RBC (0-5) /HPF Urine WBC (0-5) /HPF Ur Epithelial Cells /LPF Amorphous Sediment (0/HPF) /HPF Urine Bacteria (NONE TO FEW) /HPF SARS CoV-2 RNA Rapid NORBERT Negative (NEGATIVE) BRIANA Results - Last 24 hrs: Microbiology 10/12/21 20:04 Urine Culture - Final Urine, Voided Med Orders - Current: Current Medications Acetaminophen (Acetaminophen 650 Mg Tab.Er) 650 mg PO 08,18 [facility] Last Admin: 10/13/21 07:23 Dose: Not Given Documented by: Albuterol (Albuterol 8 Gm Inhaler) 0 gm INH Q4H PRN PRN Reason: Shortness of Breath Amoxicillin/Clavulanate Potassium (Amoxicillin/Clavulanate K 875-125 Mg Tab) 1 tab PO Q12HR [facility] Artificial Tears (Carboxymethylcellulose Sodium 0.5% Ophth Soln 15 Ml Bottle) 0 ml EYEBOTH BID PRN PRN Reason: Dry Eyes Aspirin (Aspirin 81 Mg Tab.Chew) 81 mg PO DAILY [facility] Last Admin: 10/13/21 08:42 Dose: 81 mg Documented by: Bisacodyl (Bisacodyl 10 Mg Supp) 10 mg RECTAL DAILY [facility] Last Admin: 10/13/21 08:43 Dose: Not Given Documented by: Calcium Carbonate/Glycine (Calcium Carbonate 500 Mg Tab.Chew) 500 mg PO [facility] Last Admin: 10/13/21 08:42 Dose: 500 mg Documented by: Carbidopa/Levodopa (Carbidopa/Levodopa 25-100 Mg Tab.Er) 2 tab PO 0200,2000 [facility] Last Admin: 10/13/21 01:06 Dose: 2 tab Documented by: Carbidopa/Levodopa (Carbidopa/Levodopa 25-100 Mg Tab) 3 tab PO 0830,1130,1430,1730 [facility] Last Admin: 10/13/21 11:10 Dose: 3 tab Documented by: Carvedilol (Carvedilol 6.25 Mg Tab) 3.125 mg PO BID [facility] Last Admin: 10/13/21 08:45 Dose: 3.125 mg Documented by: Fluticasone Propionate (Fluticasone Propionate Nasal [place] 16 Gm Bottle) 0 gm NASBOTH [facility] Last Admin: 10/13/21 08:41 Dose: 1 spray Documented by: Furosemide (Furosemide 40 Mg Tab) 40 mg PO , [facility] Sodium Chloride (Normal Saline) 1,000 mls @ 75 mls/hr IV ASDIRECTED [facility] Last Admin: 10/13/21 11:00 Dose: 75 mls/hr Documented by: Levothyroxine Sodium (Levothyroxine 50 Mcg Tab) 50 mcg PO ACBREAKFAST [facility] Last Admin: 10/13/21 06:32 Dose: Not Given Documented by: Lisinopril (Lisinopril 5 Mg Tab) 5 mg PO DAILY [facility] Non-Formulary Medication (Aripiprazole) 2 mg PO BEDTIME [facility] Non-Formulary Medication (Carbidopa [Carbidopa]) 25 mg PO ASDIRECTED [facility] Non-Formulary Medication (Entacapone [Entacapone]) 200 mg PO ASDIRECTED [facility] Non-Formulary Medication (Fexofenadine Hcl [Fexofenadine Hcl]) 180 mg PO BEDTIME [facility] Non-Formulary Medication (Pimavanserin Tartrate [Nuplazid]) 34 mg PO DAILY [facility] Ondansetron HCl (Ondansetron 4 Mg Tab.Dis) 4 mg PO TID PRN PRN Reason: nausea and vomiting Pantoprazole Sodium (Pantoprazole 40 Mg Tab.Cr) 40 mg PO ACBREAKFAST [facility] Last Admin: 10/13/21 06:32 Dose: Not Given Documented by: Polyethylene Glycol (Polyethylene Glycol 3350 Powder 17 Gm Packet) 17 gm PO DAILY [facility] Last Admin: 10/13/21 08:43 Dose: Not Given Documented by: Potassium Chloride (Potassium Chloride 10 Meq Tab.Er) 10 meq PO ,18 [facility] Last Admin: 10/13/21 08:41 Dose: 10 meq Documented by: Quetiapine Fumarate (Quetiapine 25 Mg Tab) 75 mg PO BEDTIME [facility] Senna/Docusate Sodium (Docusate Sodium/Sennosides 50-8.6 Mg Tab) 1 tab PO [facility] Last Admin: 10/13/21 08:42 Dose: Not Given Documented by: Sertraline HCl (Sertraline 50 Mg Tab) 150 mg PO BEDTIME [facility] Discontinued Medications Sodium Chloride (Normal Saline) 1,000 mls @ 999 mls/hr IV .BOLUS ONE Stop: 10/12/21 18:28 Last Admin: 10/12/21 17:54 Dose: 999 mls/hr Documented by: Potassium Chloride/Sodium Chloride (Normal Saline With 40 Meq Kcl) 1,000 mls @ 75 mls/hr IV ASDIRECTED [facility] Last Admin: 10/12/21 21:38 Dose: 75 mls/hr Documented by: Sodium Chloride (Sodium Chloride 0.9% 10 Ml Syringe) 10 ml FLUSH Q8HR PRN PRN Reason: keep vein open
[2021-10-13] MEDS ORDERED: Sertraline 50 MG Tab PO SCH (21:00)
[2021-10-13] MEDS ORDERED: QUEtiapine 25 MG Tab PO SCH (21:00)
[2021-10-13] MEDS ORDERED: Non-Formulary Medication 1 Each (Fexofenadine Hcl [Fexofenadine Hcl] 180 MG Tablet) PO SCH (21:00)
[2021-10-13] MEDS ORDERED: Non-Formulary Medication 1 Each (Aripiprazole 2 MG Tablet) PO SCH (21:00)
== END 2021-10-13 15:45 ==
LOC: KA.ED 17:03 → KA.MS 20:03 → INTOOBSV 20:03
PROVIDERS: ADMIT Student in an Organized Health Care Education/Training Program; ATTEND Student in an Organized Health Care Education/Training Program
DX: R53.1 Weakness (principal); E86.0 Dehydration; E87.6 Hypokalemia; R63.4 Abnormal weight loss; E46 Unspecified protein-calorie malnutrition; K13.0 Diseases of lips; N39.0 Urinary tract infection, site not specified; I10 Essential (primary) hypertension; G20 Parkinson's disease; E03.9 Hypothyroidism, unspecified; J30.9 Allergic rhinitis, unspecified; E55.9 Vitamin D deficiency, unspecified; E66.9 Obesity, unspecified; M70.60 Trochanteric bursitis, unspecified hip; F25.9 Schizoaffective disorder, unspecified; D64.9 Anemia, unspecified; K21.9 Gastro-esophageal reflux disease without esophagitis; K59.09 Other constipation; Z86.73 Personal history of transient ischemic attack (TIA), and cerebral infarction without residual deficits; Z98.890 Other specified postprocedural states; Z79.890 Hormone replacement therapy; Z68.30 Body mass index [BMI] 30.0-30.9, adult; Z79.899 Other long term (current) drug therapy; Z20.822 Contact with and (suspected) exposure to COVID-19
CPT/HCPCS: 36415; 80053; 81001; 83735; 85025; 87040; 87086; 87088; 87186; 99285; A9270; J3480; J7030; U0002; 99284